=== PATIENT | male | born 1935 | race Caucasian/White ===

== ENCOUNTER 2016-07-25 10:42 | Inpatient (IN) | payer MEDICARE ==
[2016-07-25] MEDS ORDERED: Ondansetron INJ* 2 MG/ML VIAL IV ONE (14:12)
[2016-07-25] MEDS: NS 0.9% 1000 ML* 2,000 ML IV ONE ×2 (14:52→15:37)
[2016-07-25 15:03] LABS: Comments Flag Yes; Hematocrit 44 % (42-52); Hemoglobin 14.3 g/dl (14.0-18.0); Mean Corpuscular HGB Conc 33 g/dl (31-36); Mean Corpuscular Hemoglobin 30 pg (27-31); Mean Corpuscular Volume 92 fL (80-94); Mean Platelet Volume 8 um3 (7.4-10.4); Red Blood Count 4.77 10^6/ul (4.0-5.4); Red Cell Distribution Width 15 % (10.5-15); White Blood Count 5.1 10^3/ul (3.5-10.8)
[2016-07-25 15:04] LABS: Add Diff/Slide Review? Slide Review Added
[2016-07-25 15:23] LABS: Albumin 3.8 g/dL (3.2-5.2); BUN/Creatinine Ratio 12.4 (8-20); C Reactive Protein 44.83 mg/L (< 5.00); Calcium 11.3 mg/dL (8.6-10.3); EGFR African American 59.9 (>60); EGFR Non-African American 46.6 (>60); Potassium 3.8 mmol/L (3.5-5.0); Total Bilirubin 2.8 mg/dL (0.2-1.0); Total Protein 6.8 g/dL (6.4-8.9)
[2016-07-25] MEDS ORDERED: Iodixanol* (CONTRAST) 320 MG/ML 100 ML SDV IV ONE (15:59)
--- NOTE | 2016-07-25 17:32 | RAD ---
INDICATION: RIGHT lower quadrant tenderness. Bloody diarrhea. Assess for colitis. Post appendectomy. Post cholecystectomy. COMPARISON: June 10, 2016 CT. TECHNIQUE: Multidetector CT images were obtained from the lung bases to the ischial tuberosities with 100 mL Visipaque 320 IV and oral contrast. Multiplanar reformation. REPORT: Mild RIGHT greater than LEFT basilar dependent atelectasis. RIGHT coronary artery calcification. Negative for cardiomegaly or pericardial effusion. Enlarged liver measuring up to 24.5 cm cephalocaudal increased from 22.9 cm previously. Mildly nodular liver surface contour. Heterogeneous hepatic density with diffuse nodularity. Ill-defined 0.9 cm hypodense lesion at the RIGHT posterior hepatic segment reference image 32 is new compared with the prior exam. Post cholecystectomy. Negative for biliary dilatation. Atrophic pancreas without suspicious finding. Mildly enlarged 14.3 cm length spleen without gross change. Negative for CT abnormality of the upper GI or small bowel. Post appendectomy. Enteric contrast extends to the rectum. Severe diverticulosis of the colon most marked at the sigmoid segment without findings of acute diverticulitis. No focal colonic lesions conspicuous. Minimal perihepatic ascites. Negative for free air. Small fat-containing indirect LEFT inguinal hernia without inflammatory change. Normal adrenal glands. Symmetric nephrograms and pyelograms. No suspicious focal renal lesions or hydronephrosis. Despite absence of LEFT hydronephrosis a 5 mm distal LEFT ureteral stone is visualized approximate 2.7 cm from the ureteral vesicular junction with distal propagation compared with the June 10, 2016 exam. No significant periureteral inflammatory change evident. Largely decompressed urinary bladder without gross abnormality. Coarse calcifications at the mildly prominent prostate. Symmetric seminal vesicles. 1.5 cm short axis lymph node anterior to the hepatic artery is increased from 0.7 cm on the prior exam. Infrarenal anterior para-aortic lymph node measures 1.2 cm short axis increased from 0.6 cm previously. Tortuous and calcified abdominal aorta and iliac arteries without aneurysm. Negative for retroperitoneal hematoma. Polyarticular degenerative arthropathy. Negative for suspicious focal osseous lesions. IMPRESSION: 1. Increased hepatomegaly with coarse echotexture/nodularity. Consider early cirrhosis. Ill-defined 0.9 cm hypodense lesion at the RIGHT posterior hepatic segment appears new compared with the prior exam. If clinically feasible consider hepatic mass protocol MRI for further assessment. 2. No significant change in splenomegaly. 3. New abdominal adenopathy as described. 4. Despite absence of LEFT hydronephrosis a 5 mm distal LEFT ureteral stone is visualized approximate 2.7 cm from the ureteral vesicular junction with distal propagation compared with the June 10, 2016 exam. No significant periureteral inflammatory change evident. 5. Severe colonic diverticulosis most marked at the sigmoid colon without findings of acute diverticulitis. 6. Small perihepatic ascites.
[2016-07-25] MEDS ORDERED: NS 0.9% 1000 ML* 2,000 ML IV ONE (18:10)
--- NOTE | 2016-07-25 19:49 | RAD ---
Indication: Heterogeneous liver on CT the same date with suggestion of small focal lesion at the RIGHT posterior hepatic segment. Jaundice. Comparison: CT of the same date. Technique: RIGHT upper quadrant ultrasound. Report: Appropriate direction flow documented in the portal and hepatic veins. 20.9 cm cephalocaudal liver is heterogeneous in echotexture. Hypoechoic nodules throughout the liver with dominant 4.3 x 3.1 x 3.2 cm irregularly marginated nodule with suggestion of marginal vascularity at the RIGHT posterior hepatic segment possibly corresponding with the smaller region of focal hypodensity on CT. A small amount of perihepatic ascites is noted posteriorly. Negative for intra or extrahepatic biliary dilatation. While conspicuity is limited the common bile duct measures approximate 4 mm in diameter. Post cholecystectomy. The pancreas is obscured due to bowel gas. Unremarkable 9.8 x 5.1 x 4.4 cm RIGHT kidney. IMPRESSION: 1. Markedly coarsened echotexture of the liver and increased hepatic echogenicity. Hypoechoic nodules throughout the liver with dominant 4.3 x 3.1 x 3.2 cm irregularly marginated nodule with suggestion of marginal vascularity at the RIGHT posterior hepatic segment possibly corresponding with the smaller region of focal hypodensity on CT. Magnitude of increased hepatic echogenicity and diffuse coarse echotexture limits assessment. Correlate for potential acute hepatitis as well as early cirrhosis. Appropriate direction flow documented in the portal vein. If clinically feasible consider follow-up liver mass protocol MRI. 2. Post cholecystectomy. Negative for biliary dilatation.
[2016-07-25] MEDS ORDERED: Acetaminophen TAB* 325 MG PO PRN (19:52)
[2016-07-25] MEDS ORDERED: Dextrose 50% Syringe 50 ML* 25 GM/50 ML SYRINGE IV PUSH PRN (19:55)
[2016-07-25] MEDS ORDERED: NS 0.9% 1000 ML* 1,000 ML IV SCH (20:00)
--- NOTE | 2016-07-25 20:57 | RAD ---
Indication: Diarrhea and vomiting. Chronic lymphoid leukemia. Comparison: Abdomen CT of the same date and March 21, 2014 chest radiograph. January 18, 2015 CT. Technique: Upright AP 2021 hours Report: Moderate elevation of the RIGHT hemidiaphragm with associated mild RIGHT basilar atelectasis. The lungs and pleural spaces are otherwise clear. Top normal heart size. Unremarkable central pulmonary vasculature and mediastinal contours. Mildly tortuous descending thoracic aorta. Negative for free air beneath the diaphragm. IMPRESSION: Moderate elevation of the RIGHT hemidiaphragm with interval increase in associated basilar atelectasis.
[2016-07-25] MEDS ORDERED: Heparin VIAL(*) 5000 UNITS/ML VIAL (FIVE THOUSAND) SUBCUT SCH (22:00)
[2016-07-26 01:41] LABS: Urine Bilirubin Negative (Negative); Urine Glucose Negative (Negative); Urine Nitrite Negative (Negative)
--- NOTE | 2016-07-26 02:09 | HP ---
HISTORY AND PHYSICAL: DATE OF ADMISSION: 07/25/16 PRIMARY CARE PROVIDER: Cornel Solorzano MD. MY ATTENDING PHYSICIAN WHILE IN THE HOSPITAL: Tosha Loja MD*, (report being dictated by Luis Jacques NP). CHIEF COMPLAINT: 1. Weakness. 2. Diarrhea. 3. Vomiting. HISTORY OF PRESENTING ILLNESS: Mr. Tavares is an 81-year-old male patient. He has a history of CLL, diabetes, hypertension, hyperlipidemia, back pain, depression, CHRISTIANO, history of anxiety, peptic ulcer disease, kidney stones, diverticulosis with diverticulitis, and Nelson cell carcinoma. He comes into the ER today stating that over the last few days, he has started out with just generally not feeling well, very vague in terms of his symptoms, just said he felt weak, was not feeling good, did not feel like himself. He states that he noted that he was having some right lower quadrant abdominal pain that was coming and going, with no association with food. Describes it as a pressure, cramping-type discomfort. He had no recent sick contacts and he states that no one else in his family has been sick with similar symptoms as far as he knows. The pain eventually actually went away, but then in the last 24 to 48 hours, he has had diarrhea; he says that yesterday and last night, he was going almost every hour. He denied having any blood in the stool. Denies any abdominal pain currently. He says that he was starting to have some vomiting as well yesterday and he just did not feel well. He denied having any rhinorrhea or sore throat. He says he feels like he is aching all over. He denied having any chest pain or any shortness of breath. He does state that he felt chills and he was sweating when he was waiting in the emergency room despite him having a winter jacket and being, in his words, "bundled up to be outside", he still felt cold. He says that he did not have any documented fevers that he knows of, but he was concerned. He spoke to his urologist, thought maybe he had a kidney stone. They were concerned that perhaps he had diverticulitis and they referred him to the ER to be further evaluated. He denies any recent changes in medication. There has been no recent antibiotics and, to his knowledge, there has been no consumption of spoilt food. He was evaluated in the ER. There was concern because his LFTs were elevated. He appeared to be dehydrated. Heart rate was hovering right around the 90s and the hospitalist service was asked to evaluate for admission. PAST MEDICAL HISTORY: Significant for: 1. CLL. 2. Diabetes. 3. Hypertension. 4. Hyperlipidemia. 5. Back pain. 6. Depression. 7. CHRISTIANO. 8. Anxiety. 9. Peptic ulcer disease. 10. Nephrolithiasis. 11. Diverticulitis. 12. [place] cell cancer. PAST SURGICAL HISTORY: 1. He has had an appendectomy. 2. Lymph node dissection in the left upper extremity. 3. Back surgery. 4. Shoulder surgery. 5. Laparoscopic cholecystectomy. 6. Partial colectomy. HOME MEDICATIONS: According to the list that we obtained, include: 1. Percocet 1 tablet every 6 hours as needed. 2. Glipizide 5 mg daily. 3. Wellbutrin 100 mg a day. 4. Flomax 0.4 mg daily. 5. Multivitamin 1 tablet daily. 6. Lisinopril 20 mg a day. 7. Ibuprofen 400 mg every 6 hours as needed. 8. Fioricet 1 tablet every 4 hours as needed. 9. Dilaudid 2 tablets every 4 hours as needed. 10. Lexapro 20 mg p.o. daily. ALLERGIES TO MEDICATIONS: Include none, but he is allergic to GRAPEFRUIT. FAMILY HISTORY: His mother had diabetes and she from heart attack. Father from complications of anesthesia. SOCIAL HISTORY: He is a former smoker. He occasionally drinks alcohol. He lives with his . Surrogate decision maker is his daughter. REVIEW OF SYSTEMS: There is no documented fever. He does admit to having some chills in the ER waiting room. Denies any significant weight change. Denies having any double vision. There is no ear discharge. He denies having any rhinorrhea. No sore throat. No thyroid enlargement. Denies having any chest pain. There is no orthopnea. No nocturnal dyspnea. There was abdominal discomfort, but has now subsided. He did admit to some vomiting and nausea with diarrhea. He denies any dysuria. There was no frequency. He denied any seizure or any loss of consciousness. No pruritus and no skin ulcerations. Review of 14 systems completed, all others are negative. PHYSICAL EXAMINATION GENERAL: At this time, Mr. Tavares is an 81-year-old male patient. He appears to be well nourished. He does not appear to be in any acute distress. He is awake, he is alert, and he is oriented x3. VITAL SIGNS: Blood pressure 158/77, with a pulse of 95, respirations 20, O2 sat of 90%, and he had a temperature of 97.1. HEENT: Head is atraumatic and normocephalic. Eyes: EOMs are intact. Sclerae anicteric and not pale. NECK: Supple. Throat: Oral mucosa appears to be moist. No oropharyngeal erythema. LUNGS: Clear to auscultation bilaterally. No wheezes, rales, or rhonchi. HEART: Sounds S1, S2. Regular rate and rhythm. No murmurs, rubs or gallops. ABDOMEN: Soft, flat, and nontender. Bowel sounds present. EXTREMITIES: Pulses are 2+ throughout. He is able to move all 4 extremities with 5/5 strength. NEUROLOGIC: The patient is awake, alert, and oriented x3. Tongue midline. Retail Director were equal. No gross focal deficits. SKIN: Grossly intact. DIAGNOSTIC STUDIES/LAB DATA: Today revealed WBC of 5.1, RBC of 4.77, hemoglobin of 14.3, hematocrit of 44, and platelet count of 66,000. He has a history of thrombocytopenia. He has a sodium of 132, potassium of 3.8, chloride of 101, bicarb of 23, BUN of 18, creatinine of 1.45, glucose of 225, lactic of 2.7, and calcium of 11.3. Total bili 2.8, AST 140, ALT 81, and alk phos 157. CRP of 44. Lipase of 15. Urine is pending. He did have an abdominal ultrasound today, which revealed markedly coarsened echotexture of the liver and increased hepatic echogenicity, hypoechoic nodule throughout the liver, with dominant 4.3 x 3.1 x 3.2 irregular marginated nodule with suggestion of marginal vascularity of the right posterior hepatic segment, possibly corresponding with a smaller region of focal hypodensity on the CT, magnitude of increased hepatic echogenicity and diffuse coarse echotexture limits. Assessment: 1. Correlate for potential acute hepatitis as well as early cirrhosis. Appropriate direction flow documented in the portal vein. If clinically feasible, consider followup liver mass protocol MRI. 2. Post cholecystectomy, negative for biliary dilatation. He had a CT of the abdomen and pelvis today as well, which revealed increased hepatomegaly with coarse echotexture nodularity. Consider early cirrhosis. An ill- defined 0.9 cm hypodense lesion at the right posterior hepatic segment, appears new compared to prior exam. If clinically feasible, consider hepatic mass protocol MRI for further assessment. No significant changes in splenomegaly. New abdominal adenopathy as described. Despite absence of left hydronephrosis, a 5 mm distal left ureteral stone is visualized, approximately 2.7 cm from the UVJ, with distal propagation; compared with 06/18/16 exam, no significant periureteral inflammatory change evident, severe colonic diverticulosis, most marked in the sigmoid colon without findings of acute diverticulitis or perihepatic ascites. Old medical records were reviewed. ASSESSMENT AND PLAN: Mr. Tavares is an 81-year-old male patient coming into the ER today with complaints of nausea, vomiting, diarrhea, and right lower quadrant abdominal pain that has actually gone away now, but he is still complaining of having episode of vomiting and diarrhea over the last 24 hours. On evaluation, it was found that he did have this questionable liver mass of unknown etiology. He will be admitted under observatory status for: 1. Abdominal discomfort, etiology unclear, with associated nausea and vomiting. At this point, he may certainly have an underlying gastroenteritis. I think at this point, we will offer supportive care in the form of antiemetics , pain control, in addition to this IV fluids. I do not see a need for antibiotics at this point. I want to send off stool cultures and a rotavirus, and in addition to this norovirus and C. diff testing. I am also going to send the flu swab as well. In addition to this, we will send a fecal lactoferrin as well to help us differentiate any other infection. I will send off ova and parasite as well. 2. Liver mass: Again, etiology unclear. The ultrasound does point to the possibility of hepatitis. I will send off an acute hepatitis panel as hepatitis A can certainly present with diarrhea, but I do not think this is the case, the patient has not had any travel recently and there is no relatives that are sick with similar episodes. His LFTs are elevated, but again, that could be from gastroenteritis from nausea and vomiting, or a possible hepatitis. We will send off these tests. If the acute hepatitis panel is negative, we may need to consider getting GI input as well. We may need to consider, in the outpatient setting or possibly here, doing an MRI protocol of the liver mass per Radiology. 3. Elevated liver function tests, etiology is unclear, he is not having any pain currently. He has no gallbladder and there is no report of obstructed bile duct and he is not tender in the right upper quadrant. At this point, I am just going to monitor his LFTs and we will continue to follow. We may need to consider further imaging if these do continue to elevate. 4. Chronic lymphocytic leukemia, stable. We will follow. 5. Diabetes: He will be on lispro sliding scale. 6. Hypertension: In the setting of the acute illness, I am going to hold off on his lisinopril. We will add it back if need be. 7. Hyperlipidemia: We will continue current medical regimen as prescribed. 8. Back pain: Continue medication as prescribed. 9. Depression: Continue with his Wellbutrin. 10. Obstructive sleep apnea: I have ordered a CPAP. 11. Anxiety: Continue current medical regimen. 12. Nephrolithiasis: At this point, he is not complaining any left flank pain and he does not have any CVA tenderness. We will monitor him. 13. Peptic ulcer disease: Continue meds as prescribed. I would recommended holding off on anymore ibuprofen. 14. Benign prostatic hyperplasia: Continue the Flomax. 15. [place] cell cancer: Follow with his primary. 16. DVT prophylaxis: He will be placed on heparin subcu. 17. Code status: He is full code. 18. Fluid, electrolytes, and nutrition: He can have a heart-healthy diet. TIME SPENT: Time spent on the admission was 60 minutes; greater than half the time was spent [id number] with the patient obtaining my history and physical, the other half time was spent going over the plan of care with the patient and implementing plan of care. I discussed the plan of care with my attending, Dr. Loja, she is in agreement. LUIS JACQUES NP CC: Dr. Solorzano* [id number]/[facility] #: [id number] [facility]
[2016-07-26 06:44] LABS: Hematocrit 37 % (42-52); Mean Corpuscular HGB Conc 33 g/dl (31-36); Mean Corpuscular Hemoglobin 30 pg (27-31); Mean Corpuscular Volume 93 fL (80-94); Mean Platelet Volume 9 um3 (7.4-10.4); Red Blood Count 3.94 10^6/ul (4.0-5.4); Red Cell Distribution Width 15 % (10.5-15); White Blood Count 2.6 10^3/ul (3.5-10.8)
[2016-07-26 06:46] LABS: Add Diff/Slide Review? Slide Review Added; Comments Flag Yes
[2016-07-26 07:04] LABS: Albumin 2.9 g/dL (3.2-5.2); BUN/Creatinine Ratio 11.1 (8-20); Calcium 9.3 mg/dL (8.6-10.3); Direct Bilirubin 0.8 mg/dL (0.03-0.18); EGFR African American 76.8 (>60); EGFR Non-African American 59.7 (>60); Globulin 2.6 g/dL (2-4); Potassium 3.8 mmol/L (3.5-5.0); Total Bilirubin 1.8 mg/dL (0.2-1.0); Total Protein 5.5 g/dL (6.4-8.9)
[2016-07-26] MEDS: Insulin LISPRO* 1 UNITS UNIT SUBCUT SCH ×3 (08:58→17:58)
[2016-07-26] MEDS: Tamsulosin CAP* 0.4 MG PO SCH (08:59)
[2016-07-26] MEDS: buPROPion SR TAB.SR* 100 MG PO SCH (08:59)
[2016-07-26] MEDS ORDERED: Pneumococcal *Vac Polyvalent 0.5 ML VIAL IM ONE (09:00)
--- NOTE | 2016-07-26 11:14 | PN ---
Subjective Date of Service: 07/26/16 Interval History: Patient seen and examined at bedside. He is in good spirits and in the room with his and daughter. He denies fever/chills, CP, sob. Reports decreased abd pain but still feels weak and has persistent diarrhea. 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 Family History: Unchanged from Admission Social History: Unchanged from Admission Past Medical History: Unchanged from Admission Objective Active Medications: Acetaminophen (Tylenol Tab*) 650 mg PO Q4H PRN PRN Reason: FEVER/PAIN Acetaminophen/Hydrocodone Bitart ([place] 5-325 Tab*) 1 tab PO Q4H PRN PRN Reason: PAIN Bupropion HCl (Wellbutrin Sr Tab*) 100 mg PO QAM [facility] Last Admin: 07/26/16 08:59 Dose: 100 mg Dextrose (D50w Syringe 50 Ml*) 12.5 gm IV PUSH .FOR FS < 60 - SS PRN PRN Reason: FS < 60 Sodium Chloride (Ns 0.9% 1000 Ml*) 1,000 mls @ 100 mls/hr IV PER RATE [facility] Last Admin: 07/25/16 22:17 Dose: 100 mls/hr Insulin Human Lispro (Humalog*) 0 units SUBCUT AC [facility] PRN Reason: Protocol Last Admin: 07/26/16 08:58 Dose: 2 units Ondansetron HCl (Zofran Inj*) 4 mg IV Q6H PRN PRN Reason: NAUSEA Tamsulosin HCl (Flomax Cap*) 0.4 mg PO DAILY [facility] Last Admin: 07/26/16 08:59 Dose: 0.4 mg Vital Signs 07/25/16 07/25/16 07/25/16 21:00 21:15 21:22 Temperature 97.5 F 97.5 F Pulse Rate 70 95 95 Respiratory 19 17 17 Rate Blood Pressure 134/68 160/83 160/83 (mmHg) O2 Sat by Pulse 93 99 99 Oximetry 07/26/16 07/26/16 07/26/16 00:00 00:57 03:09 Temperature 98.0 F Pulse Rate 94 Respiratory 16 17 Rate Blood Pressure 156/87 (mmHg) O2 Sat by Pulse 94 94 Oximetry 07/26/16 05:08 Temperature 98.5 F Pulse Rate 98 Respiratory 16 Rate Blood Pressure 169/92 (mmHg) O2 Sat by Pulse 96 Oximetry Oxygen Devices in Use Now: None Appearance: Older male patient, lying in bed, in NAD Eyes: PERRLA Ears/Nose/Mouth/Throat: Mucous Membranes Moist Neck: NL Appearance and Movements; NL JVP Respiratory: Symmetrical Chest Expansion and Respiratory Effort, Clear to Auscultation Cardiovascular: NL Sounds; No Murmurs; No JVD, RRR Abdominal: NL Sounds; No Tenderness; No Distention - mild tenderness to RLQ Extremities: No Edema Skin: No Rash or Ulcers Neurological: Alert and Oriented x 3 Lines/Tubes/Other Access: Clean, Dry and Intact Peripheral IV Nutrition: Taking PO's Result Diagrams: 07/26/16 06:16 07/26/16 06:16 Microbiology and Other Data: Microbiology 07/26/16 01:15 Stool Gross Appearance - Final Stool C. difficile DNA Amplification - Final 027 Presumptive NEGATIVE Toxigenic C.diff NEGATIVE Stool Lactoferrin - Final - Final 07/26/16 01:15 Stool Gross Appearance - Final Stool Rotavirus Antigen - Final Negative Rotavirus 07/25/16 22:55 Influenza Types A,B Antigen (LAKESHIA) - Final Nasal Specimen received for Influenza A/B Molecular testing Assess/Plan/Problems-Billing Assessment: Mr. Tavares is an 81 yo male with a PMH of CLL, DM, HTN, HLD, back pain, depression, PUD, nephrolithiasis, diverticulitis, and [place] Cell cancer who presented to the ED on 07/25/16 with weakness, diarrhea, and vomiting. - Patient Problems (1) Vomiting and diarrhea Code(s): R11.10 - VOMITING, UNSPECIFIED; R19.7 - DIARRHEA, UNSPECIFIED Comment : Suspect gastroenteritis or perhaps a food borne illness, as patient states he does eat out frequently. Reports frequent diarrhea for approximately 2 days, now improving in terms of frequency; vomiting started yesterday. Patient has a history of partial colectomy and has chronic issues with frequent, sudden BM that alternate between formed and loose stools. C. difficile, rotavirus, and lactoferrin are negative. Norovirus, stool culture, and ova and parasites are still pending. Continue IVF and supportive care. (2) Liver mass Code(s): R16.0 - HEPATOMEGALY, NOT ELSEWHERE CLASSIFIED Comment: Hepatitis panel negative. Appreciate GI consult to help guide evaluation. LFTs improved today. (3) Elevated LFTs Code(s): R94.5 - ABNORMAL RESULTS OF LIVER FUNCTION STUDIES Comment: Improving today, may be secondary to nausea/vomiting. Continue to trend. (4) Type 2 diabetes mellitus Comment: HgbA1c 9.1. Continue FSBG AC with Lispro SSI. Diabetes education consult placed. Patient takes Glipizide at home. (5) HTN (hypertension) Code(s): I10 - ESSENTIAL (PRIMARY) HYPERTENSION Comment: Hypertensive, restart lisinopril. (6) Back pain Code(s): M54.9 - DORSALGIA, UNSPECIFIED Comment: Stable, continue PRN [place]. (7) Depression Code(s): F32.9 - MAJOR DEPRESSIVE DISORDER, SINGLE EPISODE, UNSPECIFIED Comment: Stable. Continue Wellbutrin. (8) CHRISTIANO (obstructive sleep apnea) Code(s): G47.33 - OBSTRUCTIVE SLEEP APNEA (ADULT) (PEDIATRIC) Comment: Offer hospital CPAP for nighttime use. (9) Anxiety Code(s): F41.9 - ANXIETY DISORDER, UNSPECIFIED Comment: Continue to offer supportive care. (10) Nephrolithiasis Code(s): N20.0 - CALCULUS OF KIDNEY Comment: 5mm distal left ureteral stone, approx. 2.7 cm from UVJ - this is a known finding and patient states it has been monitored by his urologist. He does not have any pain or hydronephrosis from the stone. Continue to monitor. (11) BPH (benign prostatic hyperplasia) Code(s): N40.0 - BENIGN PROSTATIC HYPERPLASIA WITHOUT LOWER URINRY TRACT SYMP Comment: Continue Flomax. (12) DVT prophylaxis Comment: SCDs Status and Disposition: OBV admit.
[2016-07-26] MEDS: Lisinopril TAB* 10 MG PO SCH (16:55)
[2016-07-26] MEDS ORDERED: Aspirin Low Dose CHEW TAB* 81 MG PO ONE (21:55)
[2016-07-26] MEDS ORDERED: Aspirin Low Dose CHEW TAB* 81 MG ONE (22:08)
[2016-07-26] MEDS: Nitroglycerin TAB 0.4 MG* 0.4 MG TAB SL PRN (22:16)
--- NOTE | 2016-07-26 22:34 | RAD ---
Indication: Sudden onset RIGHT side chest pain. Slight shortness of breath. Gastroenteritis. Comparison: 2021 July 25, 2016 Technique: Upright AP 2200 hours Report: Rightward rotation noted. Mild to moderate elevation of the RIGHT hemidiaphragm with associated mild RIGHT basilar atelectasis. Clear pleural spaces. Negative for pneumothorax. Negative for cardiomegaly. Unremarkable central pulmonary LEFT axillary surgical clips. Vasculature. Mildly tortuous descending thoracic aorta. Negative for free air beneath the diaphragm. IMPRESSION: Mild RIGHT basilar atelectasis secondary to diaphragmatic elevation. Negative for pneumothorax.
[2016-07-27 06:41] LABS: Hematocrit 37 % (42-52); Hemoglobin 12.4 g/dl (14.0-18.0); Mean Corpuscular HGB Conc 33 g/dl (31-36); Mean Corpuscular Hemoglobin 31 pg (27-31); Mean Corpuscular Volume 93 fL (80-94); Mean Platelet Volume 8 um3 (7.4-10.4); Red Blood Count 4.01 10^6/ul (4.0-5.4); Red Cell Distribution Width 15 % (10.5-15)
[2016-07-27 06:46] LABS: Comments Flag Yes; White Blood Count 2.5 10^3/ul (3.5-10.8)
[2016-07-27 06:55] LABS: Albumin 3.1 g/dL (3.2-5.2); BUN/Creatinine Ratio 11.7 (8-20); Calcium 9.7 mg/dL (8.6-10.3); Direct Bilirubin 0.8 mg/dL (0.03-0.18); EGFR African American 81.6 (>60); EGFR Non-African American 63.4 (>60); Globulin 2.7 g/dL (2-4); Indirect Bilirubin 1.3 mg/dL (0.3-1.0); Potassium 3.7 mmol/L (3.5-5.0); Total Bilirubin 2.1 mg/dL (0.2-1.0); Total Protein 5.8 g/dL (6.4-8.9)
[2016-07-27] MEDS: Insulin LISPRO* 1 UNITS UNIT SUBCUT SCH ×4 (08:00→17:21)
[2016-07-27] MEDS: Tamsulosin CAP* 0.4 MG PO SCH (08:38)
[2016-07-27] MEDS: Lisinopril TAB* 10 MG PO SCH (08:38)
[2016-07-27] MEDS: buPROPion SR TAB.SR* 100 MG PO SCH (08:38)
--- NOTE | 2016-07-27 08:43 | CONS ---
CONSULTATION REPORT: DATE OF CONSULT: 07/26/16 REQUESTING PHYSICIAN: Dr. Loja. INDICATION: Liver lesion. HISTORY OF PRESENT ILLNESS: Mr. Tavares is an 81-year-old gentleman with a history of CLL, diabetes, depression, obstructive sleep apnea, hypertension, hyperlipidemia, diverticulitis, and peptic ulcer disease, who was admitted a few days ago with weakness and diarrhea. It was felt to be secondary to gastroenteritis. During the workup, he did receive a CT abdomen and pelvis, which showed a 9-mm new lesion in his liver. He also has mild abdominal adenopathy and increased LFTs. The patient states that he does drink occasional alcohol. He has never had liver disease in the past. He is feeling better from a gastroenteritis standpoint. His stools are starting to firm up, less frequent, and his pain is improving. There is also a question of cirrhosis on the CT. PAST MEDICAL HISTORY: Please see the HPI. PAST SURGICAL HISTORY: 1. Appendectomy. 2. Lymph node dissection. 3. Back surgery. 4. Shoulder surgery. 5. Partial colectomy. 6. Lap dimitry. HOME MEDICATIONS: Include: 1. Lexapro. 2. Dilaudid. 3. Fioricet. 4. Ibuprofen. 5. Lisinopril. 6. Multivitamin. 7. Flomax. 8. Wellbutrin. 9. Glipizide and Percocet. ALLERGIES: GRAPE FRUIT. FAMILY HISTORY: Coronary artery disease. SOCIAL HISTORY: He quit smoking. Again, rarely drinks alcohol. 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 REVIEW OF SYSTEMS: Twelve systems were reviewed and other than that mentioned in the HPI, were unremarkable. PHYSICAL EXAM: Vital Signs: Temperature is 98.5, blood pressure 169/92, pulse 98. General: A well-appearing male in no apparent distress, lying flat in bed. Alert, oriented, pleasant, and fluent. HEENT: Mucous membranes are moist without lesions, ulcers or exudate. Head is normocephalic, atraumatic. Neck: Supple. Trachea is midline. Heart: Regular rate and rhythm. Lungs: Clear to auscultation. Abdomen: Obese. Positive bowel sounds. Soft. Liver edge is palpable. No rebound, no guarding. No masses are felt. Skin: Warm and dry. DIAGNOSTIC STUDIES/LAB DATA: Labs of note, BUN is 13, creatinine is 1.17, T- bili is 1.8, alk phos is 122, AST is 120, ALT is 69, albumin is 2.9. White count is 2.6, hemoglobin is 12, platelets of 39. CT shows a 9-mm liver mass, questionable cirrhosis and abdominal adenopathy. ASSESSMENT AND PLAN: An 81-year-old male with history of likely gastroenteritis and a new liver lesion. We need to evaluate the liver lesion a little bit further. I have recommended an MRI with repeat LFTs. I would also like to check an alpha- fetoprotein to make sure this is not hepatocellular carcinoma given the possible history of cirrhosis. We will continue to follow along. CC: Dr. Solorzano* [id number]/[facility] #: [id number] [facility] HOSPITALBrian
[2016-07-27] MEDS ORDERED: Iodixanol 320 (CONTRAST) 100 ML SDV IV ONE (11:11)
--- NOTE | 2016-07-27 11:55 | ED ---
Kim Marie Adam, scribed for José Antonio Hull MD on 07/25/16 at 1436 . GI/ HPI - HPI Summary HPI Summary: An 81 y/o male presents to the ED c/o diarrhea and vomiting for 3 weeks aggravated by food. He also reports chills and blood in the diarrhea, and denies CP, SOB, or urinary symptoms. Patient has a significant medical history including diverticulitis, HTN, hyperlipidemia, CLL Type 2 diabetes, panic attacks, and GERD. Surgical hx includes appendectomy, negative cardiac cath in 2009, and polyectomy. - History of Current Complaint Chief Complaint: EDNauseaVomitDiarrh Time Seen by Provider: 07/25/16 14:11 Stated Complaint: DIARRHEA/VOMITING Hx Obtained From: Patient Onset/Duration: Started Weeks Ago - 3 weeks Timing: Constant Severity: Moderate Current Severity: Moderate Pain Intensity: 0 Location of Pain: None Associated Signs and Symptoms: Positive: Nausea, Vomiting, Blood w/Stool, Diarrhea, Chills, Other: - Negative: CP, SOB, Urinary symptoms Aggravating Factor(s): Food Alleviating Factor(s): Bowel Movements - Diarrhea - Allergy/Home Medications Allergies/Adverse Reactions: Allergies Allergy/AdvReac Type Severity Reaction Status Date / Time GRAPEFRUIT Allergy Rash Uncoded 06/11/16 10:11 Home Medications: Home Medications Escitalopram (NF) [Lexapro (NF)] 20 mg PO QAM 07/25/16 [History Confirmed ] Lisinopril [Lisinopril 40 MG-] 20 mg PO DAILY 07/25/16 [History Confirmed ] Tamsulosin CAP* [Flomax CAP*] 0.4 mg PO DAILY 07/25/16 [History Confirmed ] buPROPion SR TAB* [Wellbutrin SR TAB*] 100 mg PO QAM 07/25/16 [History Confirmed 07/25/16] glipiZIDE TAB.XL* [Glucotrol XL*] 5 mg PO DAILY 07/25/16 [History Confirmed 11/05] PMH/Surg Hx/FS Hx/Imm Hx Endocrine/Hematology History: Reports: Hx Anemia Denies: Hx Diabetes Cardiovascular History: Reports: Hx Hypercholesterolemia, Hx Hypertension Denies: Hx Congestive Heart Failure, Other Cardiovascular Problems/Disorders Respiratory History: Reports: Hx Sleep Apnea Denies: Other Respiratory Problems/Disorders GI History: Reports: Hx Gastroesophageal Reflux Disease, Other GI Disorders - HX diverticulitis History: Reports: Other Problems/Disorders - enlarged bladder Denies: Hx Dialysis, Hx Renal Disease Musculoskeletal History: Reports: Hx Arthritis - RIGHT SHOULDER, LEFT THUMB, Other Musculoskeletal History - arthritis to shoulders and rotator cuff surgery Sensory History: Reports: Hx Contacts or Glasses - GLASSES Denies: Hx Hearing Aid Opthamlomology History: Reports: Hx Contacts or Glasses - GLASSES Neurological History: Reports: Other Neuro Impairments/Disorders - poss radiation neuropathy/tingling Psychiatric History: Reports: Hx Anxiety, Hx Depression - Cancer History Cancer Type, Location and Year: CLL AND PEDRO [place] Hx Chemotherapy: Yes - 2012 - Surgical History Surgery Procedure, Year, and Place: 1952 APPENDECTOMY. 1997 & [place] [facility] [place],. 1992 & 2003 [place] [facility] [place] surgery, hemmroidectomy 03/04. ca removed left elbow with lymph node removal 2012. CHOLEYCYSTECTOMY 1999. rodriguez cell ca removed L elbow 2012. 2006 LAPAROSCOPIC [place]STECTOMY, [facility] [place] 2009 HE[place]TH CATHER[place] [facility] [place] [facility] [place]x Anesthesia Reactions: No - Immunization History Date of Tetanus Vaccine: unknown Date of Influenza Vaccine: unk Infectious Disease History: No Infectious Disease History: Denies: Traveled Outside the [place] in Last 30 Days - Family History Known Family History: Negative: Diabetes - Social History Lives: With Family - Alcohol Use: Rare Alcohol Amount: 1/WEEK Substance Use Type: Reports: None Smoking Status (MU): Former Smoker Type: Cigarettes Have You Smoked in the Last Year: No Review of Systems Positive: Chills. Negative: Fever Eyes: Negative Negative: Erythema ENT: Negative Negative: Sore Throat Cardiovascular: Negative Negative: Chest Pain Respiratory: Negative Negative: Shortness Of Breath, Cough Positive: Vomiting, Diarrhea, Nausea, Other - Blood in diarrhea. Negative: Abdominal Pain Genitourinary: Negative Positive: no symptoms reported. Negative: burning, dysuria, hematuria Musculoskeletal: Negative Negative: Myalgia Skin: Negative Negative: Rash Neurological: Negative, Other - Negative: dizziness Psychological: Normal All Other Systems Reviewed And Are Negative: Yes Physical Exam - Summary Physical Exam Summary: Constitutional: Well-developed, Well-nourished, Alert. (-) Distressed Skin: Warm, Dry HENT: Normocephalic; Atraumatic Eyes: Conjunctiva normal Neck: Musculoskeletal ROM normal neck. (-) JVD, (-) Stridor, (-) Tracheal deviation Cardio: Rhythm regular, rate normal, Heart sounds normal; Intact distal pulses; The pedal pulses are 2+ and symmetric. Radial pulses are 2+ and symmetric. (-) Murmur Pulmonary/Chest wall: Effort normal. (-) Respiratory distress, (-) Wheezes, (-) Rales Abd: Soft, RLQ tenderness, (-) Distension, (-) Guarding, (-) Rebound Musculoskeletal: (-) Edema Lymph: (-) Cervical adenopathy Neuro: Alert, Oriented x3 Psych: Mood and affect Normal Vital Signs On Initial Exam: Initial Vitals Temp Pulse Resp BP Pulse Ox 97.2 F 118 20 128/78 94 07/25/16 10:59 07/25/16 10:59 07/25/16 10:59 07/25/16 10:59 07/25/16 10:59 Diagnostics - Vital Signs Vital Signs Temp Pulse Resp BP Pulse Ox 07/25/16 14:28 79 18 105/61 93 07/25/16 14:00 100/71 07/25/16 13:09 97.1 F 113 16 115/59 94 07/25/16 10:59 97.2 F 118 20 128/78 94 - Laboratory Result Diagrams: 07/25/16 14:50 07/25/16 14:50 Lab Statement: Any lab studies that have been ordered have been reviewed, and results considered in the medical decision making process. - CT Abd/Pelvis CT Interpretation: Positive (See Comments) - 1. Increased hepatomegaly with coarse echotexture/nodularity. Consider early cirrhosis. Ill-defined 0.9 cm hypodense lesion at the RIGHT posterior hepatic segment appears new compared with the prior exam. If clinically feasible consider hepatic mass protocol MRI for further assessment. 2. No significant change in splenomegaly. 3. New abdominal adenopathy as described. 4. Despite absence of LEFT hydronephrosis a 5 mm distal LEFT ureteral stone is visualized approximate 2.7 cm from the ureteral vesicular junction with distal propagation compared with the June 10, 2016 exam. No significant periureteral inflammatory change evident. 5. Severe colonic diverticulosis most marked at the sigmoid colon without findings of acute diverticulitis 6. Small perihepatic ascites CT Interpretation Completed By: Radiologist Re-Evaluation - Re-Evaluation First Eval Re-Evaluation Time: 18:07 Change: Unchanged Comment: Discussed labs and imaging with patient. Still tachycardic after 2 liters of fluid. GIGU Course/Dx - Diagnoses Provider Diagnoses: Ureteral stone, Dehydration, Gastritis, Hepatomegaly, Abdominal lymphadenopathy , Jaundice - Physician Notifications Discussed Care Of Patient With: Dr. Schultz (Urology, 15:30) - Explained that patient has a kidney stone in his left ureter. Dr. Hester (Hospitalist, 18:10 ) - Recommends calling oncology. Dr. Tavares (Oncology (18:45) - Not actively recieving chemotherapy. Requesting hospitalist to admit patient. Dr. Hester ( 19:00) - Agrees to admit patient. Discharge - Discharge Plan Condition: Stable Disposition: ADMITTED TO [facility] Referrals: Cornel Solorzano MD [Primary Care Provider] - The documentation as recorded by the Kim salazar Adam accurately reflects the service I personally performed and the decisions made by me, José Antonio Hull MD.
[2016-07-27] MEDS ORDERED: Iodixanol 320 (CONTRAST) 100 ML SDV IV SCH (12:00)
--- NOTE | 2016-07-27 12:49 | RAD ---
Indication: Chest pain. CTA of the chest was performed after IV contrast demonstration. Coronal and sagittal reconstructed images were obtained. Administered 82.9 ml of VISIPAQUE 320 mgi/ml was given according to hospital protocol and coronal and sagittal reconstructed images were obtained. Pulmonary arterial tree is well opacified. There are no filling defects present to suggest pulmonary embolus. The right pulmonary artery demonstrates no evidence of filling defects. The aorta demonstrates no evidence of aortic dissection or aneurysmal dilatation although atherosclerosis of the aorta is noted. Origins of the great vessels are unremarkable. The lung castro demonstrate emphysematous changes and scarring. There may be some poor inspiration with crowding of the vascular markings in the lung bases. No definite alveolar consolidation is noted. No focal nodules are identified. Degenerative changes of the glenohumeral joint are noted bilaterally. The axilla demonstrates no evidence of abnormal masses. Visualized bony structures demonstrates chronic degenerative changes of the thoracic spine. The visualized abdominal organs demonstrate previously described hypodensity in the right lobe of liver to be unchanged from prior exam. There are enlarged portacaval lymph nodes measuring up to 15 x 28 mm, enlarged celiac axis lymph nodes measuring up to 32 x 26 mm as well as an enlarged cici hepatis lymph node measuring 29 x 24 mm. Although these may represent enlargement from cirrhosis of the liver neoplastic process should BE considered. IMPRESSION: NO EVIDENCE OF PULMONARY EMBOLUS IS NOTED. CROWDING OF THE VASCULAR MARKINGS ESPECIALLY IN THE LUNG BASES. DEGENERATIVE CHANGES OF GLENOHUMERAL JOINT BILATERALLY. LIKELY CIRRHOSIS OF LIVER WITH LOW DENSITY LESION IN THE INFERIOR RIGHT LOBE OF LIVER. ENLARGED CELIAC AXIS, PORTAL CAVAL LYMPH NODES ARE NOTED. UNDERLYING MALIGNANCY SHOULD BE CONSIDERED.
[2016-07-27] MEDS ORDERED: Ketorolac INJ* 30 MG/ML 1 ML VIAL IV PUSH ONE (14:59)
[2016-07-27] MEDS ORDERED: Al Hydrox/Mg Hydrox/Simet LIQ* 30 ML UDC PO ONE (15:20)
[2016-07-27] MEDS ORDERED: Acetaminophen TAB* 325 MG PO ONE (15:22)
[2016-07-27] MEDS ORDERED: traMADol TAB* 50 MG PO PRN (16:28)
[2016-07-27] MEDS ORDERED: Acetaminophen TAB* 325 MG PO PRN (16:29)
--- NOTE | 2016-07-27 17:43 | PN ---
Subjective Date of Service: 07/27/16 Interval History: Patient seen and examined at bedside. He reports a right sided chest pain that is more tender when palpated and "twinges" when I turn from side to side. Denies any radiation of pain. Reports improvement in abd pain and diarrhea. Denies SOB, fever/chills. Telemetry: SR with PACs 100 Family History: Unchanged from Admission Social History: Unchanged from Admission Past Medical History: Unchanged from Admission Objective Active Medications: Acetaminophen (Tylenol Tab*) 650 mg PO Q6H PRN PRN Reason: FEVER/PAIN Acetaminophen/Hydrocodone Bitart ([place] 5-325 Tab*) 1 tab PO Q4H PRN PRN Reason: PAIN Bupropion HCl (Wellbutrin Sr Tab*) 100 mg PO QAM [facility] Last Admin: 07/27/16 08:38 Dose: 100 mg Dextrose (D50w Syringe 50 Ml*) 12.5 gm IV PUSH .FOR FS < 60 - SS PRN PRN Reason: FS < 60 Lactated Ringer's (Lactated Ringers 1000 Ml Bag*) 1,000 mls @ 100 mls/hr IV ONCE ONE Stop: 07/28/16 01:59 Last Admin: 07/27/16 15:45 Dose: 100 mls/hr Insulin Human Lispro (Humalog*) 0 units SUBCUT AC [facility] PRN Reason: Protocol Last Admin: 07/27/16 17:21 Dose: 9 units Iodixanol (Visipaque 320 (Contrast)) 83 ml IV ONCE [facility] Stop: 07/29/16 23:59 Lisinopril (Prinivil Tab*) 20 mg PO DAILY [facility] Last Admin: 07/27/16 08:38 Dose: 20 mg Nitroglycerin (Nitroglycerin Tab 0.4 Mg*) 0.4 mg SL Q5M PRN PRN Reason: ANGINA Last Admin: 07/26/16 22:16 Dose: 0.4 mg Ondansetron HCl (Zofran Inj*) 4 mg IV Q6H PRN PRN Reason: NAUSEA Tamsulosin HCl (Flomax Cap*) 0.4 mg PO DAILY [facility] Last Admin: 07/27/16 08:38 Dose: 0.4 mg Tramadol HCl (Ultram*) 50 mg PO Q6H PRN PRN Reason: PAIN Vital Signs 07/26/16 07/26/1617 19:34 20:00 22:01 Temperature 98.6 F 98.5 F Pulse Rate 81 79 Respiratory 16 18 20 Rate Blood Pressure 123/64 133/68 (mmHg) O2 Sat by Pulse 91 93 Oximetry 07/26/16 07/26/16 07/26/16 22:55 23:00 23:59 Temperature 98.5 F 97.2 F Pulse Rate 103 105 Respiratory 16 16 20 Rate Blood Pressure 125/64 127/77 (mmHg) O2 Sat by Pulse 92 92 Oximetry 07/27/16 07/27/16 07/27/16 02:59 07:21 07:52 Temperature 98.3 F 99.1 F Pulse Rate 73 72 Respiratory 16 18 16 Rate Blood Pressure 132/65 124/60 (mmHg) O2 Sat by Pulse 94 94 Oximetry 07/27/16 07/27/16 07/27/16 11:53 15:14 16:03 Temperature 99.5 F 99.1 F Pulse Rate 102 106 Respiratory 16 14 Rate Blood Pressure 140/77 115/65 (mmHg) O2 Sat by Pulse 90 92 92 Oximetry Oxygen Devices in Use Now: None Appearance: Older male patient, lying in bed, in NAD Eyes: PERRLA Ears/Nose/Mouth/Throat: Mucous Membranes Moist Neck: NL Appearance and Movements; NL JVP Respiratory: Symmetrical Chest Expansion and Respiratory Effort, Clear to Auscultation Cardiovascular: RRR Abdominal: NL Sounds; No Tenderness; No Distention Extremities: No Clubbing, Cyanosis Neurological: Alert and Oriented x 3 Lines/Tubes/Other Access: Clean, Dry and Intact Peripheral IV Nutrition: Taking PO's Result Diagrams: 07/27/16 06:07 07/27/16 06:07 Microbiology and Other Data: Microbiology 07/26/16 01:15 Stool Gross Appearance - Final Stool C. difficile DNA Amplification - Final 027 Presumptive NEGATIVE Toxigenic C.diff NEGATIVE Stool Lactoferrin - Final - Final 07/26/16 01:15 Stool Gross Appearance - Final Stool Rotavirus Antigen - Final Negative Rotavirus 07/25/16 22:55 Influenza Types A,B Antigen (LAKESHIA) - Final Nasal Specimen received for Influenza A/B Molecular testing Assess/Plan/Problems-Billing Assessment: Mr. Tavares is an 81 yo male with a PMH of CLL, DM, HTN, HLD, back pain, depression, PUD, nephrolithiasis, diverticulitis, and Nelson Cell cancer who presented to the ED on 07/25/16 with weakness, diarrhea, and vomiting. - Patient Problems (1) Chest pain Code(s): R07.9 - CHEST PAIN, UNSPECIFIED Comment: Chest pain overnight; EKG negative for ST changes or T wave inversions. Troponins flat. Suspect slight bump in troponin secondary to demand ischemia from gastrointestinal illness. Unable to schedule stress today; patient also with elevated LFTs. Chest pain does not appear to be cardiac, as it is right sided and is slightly reproducible. Will order echo, continue telemetry monitoring. Negative D-dimer, but CTA negative for pulmonary embolism. Will try one dose Tylenol and Maalox to alleviate pain. Avoid NSAIDs as patient has thrombocytopenia. (2) Thrombocytopenia Code(s): D69.6 - THROMBOCYTOPENIA, UNSPECIFIED Comment: With drop in WBC, unclear etiology, ?acute illness. Patient with a history of CLL. Appreciate hematology consult, which is pending. (3) Vomiting and diarrhea Code(s): R11.10 - VOMITING, UNSPECIFIED; R19.7 - DIARRHEA, UNSPECIFIED Comment : Suspect gastroenteritis or perhaps a food borne illness. Diarrhea slowing in frequency, and patient tolerating PO intake. Patient has a history of partial colectomy and has chronic issues with frequent, sudden BM that alternate between formed and loose stools. C. difficile, rotavirus, and lactoferrin are negative. Norovirus, stool culture, and ova and parasites are still pending but have been negative thus far. Continue IVF and supportive care. (4) Elevated LFTs Code(s): R94.5 - ABNORMAL RESULTS OF LIVER FUNCTION STUDIES Comment: Still elevated, ? secondary to nausea/vomiting vs liver mass. Continue to trend. Limit acetaminophen to <3 gm daily. (5) Liver mass Code(s): R16.0 - HEPATOMEGALY, NOT ELSEWHERE CLASSIFIED Comment: Appreciate GI consult. Hepatitis panel negative. Unable to obtain MRI today due to need for CTA. Radiologist felt that MRI without contrast would not be definitively diagnostic and recommended patient wait until he can do the MRI with contrast. I did discuss this with Dr. Cazares. Dr. Cazares indicated that this workup is often done as an outpatient so if the patient is discharged before MRI can be completed, patient could follow up with GI and have MRI done as an outpatient. (6) Type 2 diabetes mellitus Comment: HgbA1c 9.1. BG elevated. Start Lantus. Continue FSBG AC with Lispro SSI. Diabetes education consult placed. Patient takes Glipizide at home. (7) HTN (hypertension) Code(s): I10 - ESSENTIAL (PRIMARY) HYPERTENSION Comment: Controlled. Continue lisinopril. (8) Back pain Code(s): M54.9 - DORSALGIA, UNSPECIFIED Comment: Stable, continue PRN [place]. (9) Depression Code(s): F32.9 - MAJOR DEPRESSIVE DISORDER, SINGLE EPISODE, UNSPECIFIED Comment: Stable. Continue Wellbutrin. (10) CHRISTIANO (obstructive sleep apnea) Code(s): G47.33 - OBSTRUCTIVE SLEEP APNEA (ADULT) (PEDIATRIC) Comment: Offer hospital CPAP for nighttime use. (11) Anxiety Code(s): F41.9 - ANXIETY DISORDER, UNSPECIFIED Comment: Continue to offer supportive care. (12) Nephrolithiasis Code(s): N20.0 - CALCULUS OF KIDNEY Comment: 5mm distal left ureteral stone, approx. 2.7 cm from UVJ - this is a known finding and patient states it has been monitored by his urologist. He does not have any pain or hydronephrosis from the stone. Continue to monitor. (13) BPH (benign prostatic hyperplasia) Code(s): N40.0 - BENIGN PROSTATIC HYPERPLASIA WITHOUT LOWER URINRY TRACT SYMP Comment: Continue Flomax. (14) DVT prophylaxis Comment: SCDs Status and Disposition: Inpatient admission, anticipate LOS >2 days.
[2016-07-27] MEDS ORDERED: Insulin GLARGINE(*) 1 UNITS UNIT SUBCUT SCH (18:00)
--- NOTE | 2016-07-27 18:31 | PN ---
Progress Note - Progress Note SOAP: Subjective: []Feeling a little better. Four days of symptoms, diarrhea and chills followed by chest pain. Diarrhea is better. Still has chest pain with movement. Still with chills, no fevers. Acetaminophen (Tylenol Tab*) 650 mg PO Q6H PRN PRN Reason: FEVER/PAIN Acetaminophen/Hydrocodone Bitart ([place] 5-325 Tab*) 1 tab PO Q4H PRN PRN Reason: PAIN Bupropion HCl (Wellbutrin Sr Tab*) 100 mg PO QAM [facility] Last Admin: 07/27/16 08:38 Dose: 100 mg Dextrose (D50w Syringe 50 Ml*) 12.5 gm IV PUSH .FOR FS < 60 - SS PRN PRN Reason: FS < 60 Lactated Ringer's (Lactated Ringers 1000 Ml Bag*) 1,000 mls @ 100 mls/hr IV ONCE ONE Stop: 07/28/16 01:59 Last Admin: 07/27/16 15:45 Dose: 100 mls/hr Insulin Glargine (Lantus(*)) 10 units SUBCUT Q24H [facility] Insulin Human Lispro (Humalog*) 0 units SUBCUT AC [facility] PRN Reason: Protocol Last Admin: 07/27/16 17:21 Dose: 9 units Iodixanol (Visipaque 320 (Contrast)) 83 ml IV ONCE [facility] Stop: 07/29/16 23:59 Lisinopril (Prinivil Tab*) 20 mg PO DAILY [facility] Last Admin: 07/27/16 08:38 Dose: 20 mg Nitroglycerin (Nitroglycerin Tab 0.4 Mg*) 0.4 mg SL Q5M PRN PRN Reason: ANGINA Last Admin: 07/26/16 22:16 Dose: 0.4 mg Ondansetron HCl (Zofran Inj*) 4 mg IV Q6H PRN PRN Reason: NAUSEA Tamsulosin HCl (Flomax Cap*) 0.4 mg PO DAILY [facility] Last Admin: 07/27/16 08:38 Dose: 0.4 mg Tramadol HCl (Ultram*) 50 mg PO Q6H PRN PRN Reason: PAIN Onologic History: 1. CLL. Fatigue and progressive abdominal LAD. Treated BR x 3 ending 11/2013 with observation since that time. 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 No jaundice CTA RRR S1S2 Liver edge is palpable, non tender, no spleen tip on my exam. Exam in past wit LLQ tenderness but no liver edge. Ext tr edema, warm Assessment: []81 year old with history of Merckle cell cancer, localized and CLL. Now with increased LFTs, cytopenias, low grade fever. Ddx: viral syndrome is most likely with cytopenias and LFT changes secondary. The CT appears to show chronic liver inflammation, possible underlying dysfunction, fatty liver. Malignant differential for a liver lesion is metastatic Merckle cell cancer over primary HCC. Plan: []1. Agree with MRI if liver 2. Leukopenia and thrombocytopenia could be from acute illness or represent progression of CLL. Will follow and if remain low will need therapy for CLL. 3. Will follow up on viral studies, follow LFTs. 4. Telemetry and LISA for chest pain.
[2016-07-28] MEDS: Ondansetron INJ* 2 MG/ML VIAL IV PRN (01:33)
[2016-07-28 05:33] LABS: Hematocrit 37 % (42-52); Mean Corpuscular HGB Conc 33 g/dl (31-36); Mean Corpuscular Hemoglobin 31 pg (27-31); Mean Corpuscular Volume 93 fL (80-94); Mean Platelet Volume 8 um3 (7.4-10.4); Red Blood Count 3.94 10^6/ul (4.0-5.4); Red Cell Distribution Width 15 % (10.5-15)
[2016-07-28 05:36] LABS: Comments Flag Yes; White Blood Count 1.9 10^3/ul (3.5-10.8)
[2016-07-28 05:48] LABS: Albumin 3.1 g/dL (3.2-5.2); BUN/Creatinine Ratio 12.9 (8-20); Calcium 9.8 mg/dL (8.6-10.3); EGFR Non-African American 77.8 (>60); Globulin 2.4 g/dL (2-4); Potassium 3.6 mmol/L (3.5-5.0); Total Bilirubin 2.5 mg/dL (0.2-1.0); Total Protein 5.5 g/dL (6.4-8.9)
[2016-07-28] MEDS: Insulin LISPRO* 1 UNITS UNIT SUBCUT SCH ×3 (08:47→18:01)
[2016-07-28] MEDS: Tamsulosin CAP* 0.4 MG PO SCH (08:47)
[2016-07-28] MEDS: buPROPion SR TAB.SR* 100 MG PO SCH (08:47)
[2016-07-28] MEDS: Lisinopril TAB* 10 MG PO SCH (08:47)
[2016-07-28 13:03] LABS: AFP Tumor Marker 1.3 ng/mL (<6.0)
--- NOTE | 2016-07-28 16:48 | PN ---
Progress Note - Progress Note SOAP: Subjective: []He feels a little better. Ate well yesterday. No new complaints, no fevers. Acetaminophen (Tylenol Tab*) 650 mg PO Q6H PRN PRN Reason: FEVER/PAIN Acetaminophen/Hydrocodone Bitart ([place] 5-325 Tab*) 1 tab PO Q4H PRN PRN Reason: PAIN Bupropion HCl (Wellbutrin Sr Tab*) 100 mg PO QAM [facility] Last Admin: 07/28/16 08:47 Dose: 100 mg Dextrose (D50w Syringe 50 Ml*) 12.5 gm IV PUSH .FOR FS < 60 - SS PRN PRN Reason: FS < 60 Insulin Glargine (Lantus(*)) 15 units SUBCUT Q24H [facility] Insulin Human Lispro (Humalog*) 0 units SUBCUT AC [facility] PRN Reason: Protocol Last Admin: 07/28/16 12:30 Dose: 6 units Iodixanol (Visipaque 320 (Contrast)) 83 ml IV ONCE [facility] Stop: 07/29/16 23:59 Lisinopril (Prinivil Tab*) 20 mg PO DAILY [facility] Last Admin: 07/28/16 08:47 Dose: 20 mg Nitroglycerin (Nitroglycerin Tab 0.4 Mg*) 0.4 mg SL Q5M PRN PRN Reason: ANGINA Last Admin: 07/26/16 22:16 Dose: 0.4 mg Ondansetron HCl (Zofran Inj*) 4 mg IV Q6H PRN PRN Reason: NAUSEA Last Admin: 07/28/16 01:33 Dose: 4 mg Tamsulosin HCl (Flomax Cap*) 0.4 mg PO DAILY [facility] Last Admin: 07/28/16 08:47 Dose: 0.4 mg Tramadol HCl (Ultram*) 50 mg PO Q6H PRN PRN Reason: PAIN Objective: [] Vital Signs Temp Pulse Resp BP Pulse Ox 98.6 F 110 16 146/82 90 07/28/16 11:23 07/28/16 11:23 07/28/16 11:23 07/28/16 11:23 07/28/16 11:23 HEENT: Mucosa moist, no LAD. No jaundice CTA RRR S1S2 Liver edge is palpable, non tender, no spleen tip on my exam. Exam in past wit LLQ tenderness but no liver edge. 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 Now with increased LFTs, cytopenias, low grade fever. Fever better today and feels better, blood work unchanged. Ddx: viral syndrome is most likely with cytopenias and LFT changes secondary. The CT appears to show chronic liver inflammation, possible underlying dysfunction, fatty liver. Malignant differential for a liver lesion is metastatic Merckle cell cancer over primary HCC. Plan: []1. Agree with MRI if liver 2. Leukopenia and thrombocytopenia could be from acute illness or represent progression of CLL. Will follow and if remain low will need therapy for CLL. 3. Will follow up on viral studies, follow LFTs. 4. Telemetry and LISA for chest pain.
--- NOTE | 2016-07-28 17:10 | PN ---
Subjective Date of Service: 07/28/16 Interval History: This is an 81 yo gentleman with a remote h/o Merckle cell CA and CLL who presented with abdominal pain and n/v/d. He has a low density lesion appreciated on liver imaging. Liver appears enlarged and nodular, no other acute pathology appreciated on imaging. Noted transaminitis and elevated Tbili with leukopenia and thrombocytopenia. Hepatitis panel negative. Heme/onc has been consulted and suggested etiology may be viral v malignant. Patient has had no significant changes in symptoms today. No further vomiting or diarrhea. Some abdominal pain. Appetite is ok. Still quite fatigued. Objective Active Medications: Acetaminophen (Tylenol Tab*) 650 mg PO Q6H PRN PRN Reason: FEVER/PAIN Acetaminophen/Hydrocodone Bitart ([place] 5-325 Tab*) 1 tab PO Q4H PRN PRN Reason: PAIN Bupropion HCl (Wellbutrin Sr Tab*) 100 mg PO QAM [facility] Last Admin: 07/28/16 08:47 Dose: 100 mg Dextrose (D50w Syringe 50 Ml*) 12.5 gm IV PUSH .FOR FS < 60 - SS PRN PRN Reason: FS < 60 Insulin Glargine (Lantus(*)) 15 units SUBCUT Q24H [facility] Insulin Human Lispro (Humalog*) 0 units SUBCUT AC [facility] PRN Reason: Protocol Last Admin: 07/28/16 12:30 Dose: 6 units Iodixanol (Visipaque 320 (Contrast)) 83 ml IV ONCE [facility] Stop: 07/29/16 23:59 Lisinopril (Prinivil Tab*) 20 mg PO DAILY [facility] Last Admin: 07/28/16 08:47 Dose: 20 mg Nitroglycerin (Nitroglycerin Tab 0.4 Mg*) 0.4 mg SL Q5M PRN PRN Reason: ANGINA Last Admin: 07/26/16 22:16 Dose: 0.4 mg Ondansetron HCl (Zofran Inj*) 4 mg IV Q6H PRN PRN Reason: NAUSEA Last Admin: 07/28/16 01:33 Dose: 4 mg Tamsulosin HCl (Flomax Cap*) 0.4 mg PO DAILY [facility] Last Admin: 07/28/16 08:47 Dose: 0.4 mg Tramadol HCl (Ultram*) 50 mg PO Q6H PRN PRN Reason: PAIN Vital Signs: Temp Pulse Resp BP Pulse Ox 98.6 F 110 16 146/82 90 07/28/16 11:23 07/28/16 11:23 07/28/16 11:23 07/28/16 11:23 07/28/16 11:23 Oxygen Devices in Use Now: None Appearance: Patient is sleeping, accompanied by family. They do not want him to be aroused for a full exam. Result Diagrams: 07/28/16 05:18 07/28/16 05:18 Microbiology and Other Data: Microbiology 07/26/16 01:15 Stool Gross Appearance - Final Stool C. difficile DNA Amplification - Final 027 Presumptive NEGATIVE Toxigenic C.diff NEGATIVE Stool Lactoferrin - Final - Final 07/26/16 01:15 Stool Gross Appearance - Final Stool Rotavirus Antigen - Final Negative Rotavirus 07/25/16 22:55 Influenza Types A,B Antigen (LAKESHIA) - Final Nasal Specimen received for Influenza A/B Molecular testing Assess/Plan/Problems-Billing Assessment: Mr. Tavares is an 81 yo male with a PMH of CLL, DM, HTN, HLD, back pain, depression, PUD, nephrolithiasis, diverticulitis, and Nelson Cell cancer who presented to the ED on 07/25/16 with weakness, diarrhea, and vomiting. - Patient Problems (1) Liver mass Comment: Appreciate GI consult. Hepatitis panel negative. MRI pending for Saturday (2) Elevated LFTs Comment: Elevated AST/ALT with elevated Tbili Neg hepatitis panel ? viral syndrome US neg for biliary pathology EBV and CMV serology pending (3) Abdominal pain Comment: With n/v/d Abd pain persistent, vomiting and diarrhea resolved Possible viral process Hepatitis panel neg Ordered CMV, EBV, and Lyme serologies (4) Thrombocytopenia Comment: With drop in WBC, unclear etiology, ?acute illness. Patient with a history of CLL. Appreciate hematology consult Continue to monitor Lovenox held (5) Ureterolithiasis Comment: Non-obstructive, unlikely to be contributing to acute picture (6) BPH (benign prostatic hyperplasia) Comment: Continue Flomax. (7) CLL (chronic lymphocytic leukemia) Comment: History of CLL New leukopenia and thrombocytopenia may be technology sales representative of recurrence v viral process Dr Tracey consulting Cont to follow CBC Continue outpatient follow-up. (8) Depression Comment: Stable. Continue Wellbutrin. (9) HLD (hyperlipidemia) (10) HTN (hypertension) Comment: Controlled. Continue lisinopril. (11) Type 2 diabetes mellitus Comment: HgbA1c 9.1 FBG still >200 Increase Lantus (12) CHRISTIANO (obstructive sleep apnea) (13) Anxiety Comment: Status and Disposition: Cont inpatient hospital stay. Anticipated discharge in 2-3 days
[2016-07-28] MEDS: Insulin GLARGINE(*) 1 UNITS UNIT SUBCUT SCH (18:00)
[2016-07-29] MEDS ORDERED: Magnesium Hydroxide LIQ* 30 ML UDC PO ONE ×2 (01:37→15:23)
[2016-07-29 05:18] LABS: Hematocrit 36 % (42-52); Mean Corpuscular HGB Conc 33 g/dl (31-36); Mean Corpuscular Hemoglobin 31 pg (27-31); Mean Corpuscular Volume 93 fL (80-94); Mean Platelet Volume 9 um3 (7.4-10.4); Red Blood Count 3.89 10^6/ul (4.0-5.4); Red Cell Distribution Width 15 % (10.5-15)
[2016-07-29 05:20] LABS: Comments Flag Yes; White Blood Count 2.2 10^3/ul (3.5-10.8)
[2016-07-29 05:31] LABS: BUN/Creatinine Ratio 12.5 (8-20); EGFR African American 96.4 (>60); Potassium 3.7 mmol/L (3.5-5.0)
[2016-07-29 08:03] LABS: C Reactive Protein 27.64 mg/L (< 5.00); Total Bilirubin 2.4 mg/dL (0.2-1.0)
[2016-07-29] MEDS: Insulin LISPRO* 1 UNITS UNIT SUBCUT SCH ×3 (08:28→16:43)
[2016-07-29] MEDS: Lisinopril TAB* 10 MG PO SCH (08:28)
[2016-07-29] MEDS: Docusate CAP* 100 MG PO SCH ×2 (08:28→23:13)
[2016-07-29] MEDS: Tamsulosin CAP* 0.4 MG PO SCH (08:28)
[2016-07-29] MEDS ORDERED: NS 0.9% 1000 ML* 1,000 ML IV SCH (08:30)
--- NOTE | 2016-07-29 08:53 | PN ---
Subjective Date of Service: 07/29/16 Interval History: Patient reports improvement in his energy level today. He was up early and walked 2 laps around the nursing station without dyspnea, chest pain, or abdominal pain. He states that he feels bloated and constipated and requested an enema. Reports improvement in abdominal pain however and no nausea or vomiting. Appetite is still poor. Objective Active Medications: Acetaminophen (Tylenol Tab*) 650 mg PO Q6H PRN PRN Reason: FEVER/PAIN Acetaminophen/Hydrocodone Bitart ([place] 5-325 Tab*) 1 tab PO Q4H PRN PRN Reason: PAIN Bupropion HCl (Wellbutrin Sr Tab*) 100 mg PO QAM [facility] Last Admin: 07/28/16 08:47 Dose: 100 mg Dextrose (D50w Syringe 50 Ml*) 12.5 gm IV PUSH .FOR FS < 60 - SS PRN PRN Reason: FS < 60 Docusate Sodium (Colace Cap*) 200 mg PO BID [facility] Last Admin: 07/29/16 08:28 Dose: 200 mg Sodium Chloride (Ns 0.9% 1000 Ml*) 1,000 mls @ 75 mls/hr IV PER RATE [facility] Stop: 07/29/16 21:49 Insulin Glargine (Lantus(*)) 15 units SUBCUT Q24H [facility] Last Admin: 07/28/16 18:00 Dose: 15 units Insulin Human Lispro (Humalog*) 0 units SUBCUT AC [facility] PRN Reason: Protocol Last Admin: 07/29/16 08:28 Dose: 6 units Iodixanol (Visipaque 320 (Contrast)) 83 ml IV ONCE [facility] Stop: 07/29/16 23:59 Lisinopril (Prinivil Tab*) 20 mg PO DAILY [facility] Last Admin: 07/29/16 08:28 Dose: 20 mg Nitroglycerin (Nitroglycerin Tab 0.4 Mg*) 0.4 mg SL Q5M PRN PRN Reason: ANGINA Last Admin: 07/26/16 22:16 Dose: 0.4 mg Ondansetron HCl (Zofran Inj*) 4 mg IV Q6H PRN PRN Reason: NAUSEA Last Admin: 07/28/16 01:33 Dose: 4 mg Sodium Biphosphate/Sodium Phosphate (Fleet Enema*) 1 bottle DC ONCE [facility] Stop: 07/29/16 09:01 Tamsulosin HCl (Flomax Cap*) 0.4 mg PO DAILY [facility] Last Admin: 07/29/16 08:28 Dose: 0.4 mg Tramadol HCl (Ultram*) 50 mg PO Q6H PRN PRN Reason: PAIN Vital Signs: Temp Pulse Resp BP Pulse Ox 98.9 F 120 16 147/78 98 07/29/16 03:51 07/29/16 03:51 07/29/16 03:51 07/29/16 03:51 07/29/16 04:33 Oxygen Devices in Use Now: None Appearance: Well appearing, alert and bright. Telling jokes. In NAD Neck: NL Appearance and Movements; NL JVP Respiratory: Symmetrical Chest Expansion and Respiratory Effort Cardiovascular: NL Sounds; No Murmurs; No JVD, RRR Abdominal: - - BS present, hepatomegaly noted with some TTP, some mild diffuse TTP Extremities: No Edema Skin: No Rash or Ulcers Neurological: Alert and Oriented x 3 Result Diagrams: 07/29/16 05:06 07/29/16 05:06 Additional Lab and Data: Laboratory Tests 07/25/16 07/27/16 07/29/16 14:50 06:07 05:06 C-Reactive Protein 44.83 H 27.64 H Tumor Marker AFP 1.3 Anti-Nuclear Antibody 0.3 Microbiology and Other Data: Microbiology 07/26/16 01:15 Stool Gross Appearance - Final Stool C. difficile DNA Amplification - Final 027 Presumptive NEGATIVE Toxigenic C.diff NEGATIVE Stool Lactoferrin - Final - Final 07/26/16 01:15 Stool Gross Appearance - Final Stool Rotavirus Antigen - Final Negative Rotavirus 07/25/16 22:55 Influenza Types A,B Antigen (LAKESHIA) - Final Nasal Specimen received for Influenza A/B Molecular testing Assess/Plan/Problems-Billing Assessment: Mr. Tavares is an 81 yo male with a PMH of CLL, DM, HTN, HLD, back pain, depression, PUD, nephrolithiasis, diverticulitis, and [place] Cell cancer who presented to the ED on 07/25/16 with weakness, diarrhea, and vomiting. - Patient Problems (1) Liver mass Comment: Appreciate GI consult. Hepatitis panel negative. EITAN and AFP also neg MRI pending for tomorrow (2) Elevated LFTs Comment: Elevated AST/ALT with elevated Tbili which appear to be stable Neg hepatitis panel ? viral syndrome US neg for biliary pathology EBV and CMV serology pending (3) Abdominal pain Comment: With n/v/d Abd pain is improving vomiting and diarrhea resolved Possible viral process Hepatitis panel neg CMV, EBV, and Lyme serologies pending (4) Thrombocytopenia Comment: With drop in WBC, unclear etiology, ?acute illness. Noted some improvement in ANC today and plt count remains stable Patient with a history of CLL. Appreciate hematology consult Continue to monitor Lovenox held (5) Hyponatremia Comment: Possibly due to poor oral intake over the last 48h or so Will give 1L of NS slowly today (6) Ureterolithiasis Comment: Non-obstructive, unlikely to be contributing to acute picture (7) BPH (benign prostatic hyperplasia) Comment: Continue Flomax. (8) CLL (chronic lymphocytic leukemia) Comment: History of CLL New leukopenia and thrombocytopenia may be professional healthcare representative of recurrence v viral process Dr Tracey consulting Cont to follow CBC Continue outpatient follow-up. (9) Depression Comment: Stable. Continue Wellbutrin. (10) HLD (hyperlipidemia) (11) HTN (hypertension) Comment: Controlled. Continue lisinopril. (12) Type 2 diabetes mellitus Comment: HgbA1c 9.1 FBG still >200 Increased Lantus yesterday, will monitor for today and may increase Lantus further tomorrow (13) CHRISTIANO (obstructive sleep apnea) (14) Anxiety Comment: Status and Disposition: Cont inpatient hospital stay. Anticipated discharge in 1-2 days. MRI pending for tomorrow
[2016-07-29] MEDS ORDERED: Sodium Phosphate ADULT ENEMA* 118 ml bottle PR ONE (09:00)
[2016-07-29] MEDS: buPROPion SR TAB.SR* 100 MG PO SCH (09:05)
--- NOTE | 2016-07-29 14:01 | ECHO ---
Patient: JAX HULL [facility] Rec#: [id number] : 1935 Date: 07/29/2016 Age: 81y Height: 172.72 cm / 68.0 in Weight: 88.9 kg / 195.9 lbs Sex: M BSA: 2.03 Room#: 452 Admit Date#: 07/26/2016 Type: Inpatient Referring: Jessica Rangel Reading: Garth Li MD [employer] Dean: Ni Khan RDCS CC: Shin Tracey MD CC: Cornel Solorzano MD Transthoracic Echocardiogram Indication: Resp Abn BP: 147/78 HR: 113 Rhythm: Tachycardia Findings History: Former smoker,CLL,DM,HTN,HLD,depression,CHRISTIANO,Nelson cell cancer, chemotherapy. Technical Comments: The study quality is good. Completed at 1117. Left Ventricle: The left ventricular chamber size is decreased. Mild concentric left ventricular hypertrophy is observed. Global left ventricular wall motion and contractility are within normal limits. There is normal left ventricular systolic function. The estimated ejection fraction is 55-60%. Normal left ventricular diastolic filling is observed. Left Atrium: The left atrium is mild to moderately dilated. Right Ventricle: The right ventricular cavity size is normal. The right ventricular global systolic function is normal. Right Atrium: The right atrial cavity size is normal. Aortic Valve: The aortic valve is trileaflet. There is no evidence of aortic regurgitation. There is no evidence of aortic stenosis. Mitral Valve: The mitral valve leaflets appear normal. There is a trace of mitral regurgitation. There is no evidence of mitral stenosis. Tricuspid Valve: The tricuspid valve leaflets are normal. There is mild to moderate tricuspid regurgitation. There is evidence of mild pulmonary hypertension. There is no tricuspid stenosis. Pulmonic Valve: The pulmonic valve structure is not well visualized. Pericardium: A pericardial effusion is visualized. A trivial pericardial effusion is visualized. A pericardial fat pad is visualized. Aorta: There is mild dilatation of the ascending aorta.(3.7 cm) There is no dilatation of the aortic arch. Pulmonary Artery: The main pulmonary artery appears normal. Venous: The venous system is not well visualized. Conclusions Mild concentric left ventricular hypertrophy is observed. Global left ventricular wall motion and contractility are within normal limits. There is normal left ventricular systolic function. The estimated ejection fraction is 55-60%. There is no evidence of aortic stenosis. There is a trace of mitral regurgitation. There is mild to moderate tricuspid regurgitation. There is evidence of mild pulmonary hypertension. A trivial pericardial effusion is visualized. There is mild dilatation of the ascending aorta.(3.7 cm) Measurements Name Value Normal Range RVIDd (AP) 2D 3.3 cm (0.9 - 2.6) RVDdMajor (2D) 3.6 cm (2.2 - 4.4) RAd ISD 4CH 4.7 cm (3.4 - 4.9) RA (A4C)W 3 cm (2.9 - 4.6) IVSd (2D) 1.1 cm (0.6 - 1) LVPWd (2D) 1.2 cm (0.6 - 1) LVIDd (2D) 3.3 cm (3.6 - 5.4) LVIDs (2D) 1.9 cm - LV FS (2D) 42 % (25 - 45) Aortic Annulus 2.5 cm (1.4 - 2.6) Ao root diameter (2D) 3.4 cm (2.1 - 3.5) Ascending Ao 3.7 cm (2.1 - 3.4) Aortic arch 2.9 cm (1.8 - 3.4) Descending Ao 0.8 cm - LA dimension (AP) 2D 4.4 cm (2.3 - 3.8) LAd ISD 4CH 4.9 cm (2.9 - 5.3) LA ISD 4CH W 3.9 cm (2.5 - 4.5) Name Value Normal Range LA ESV SP 4CH (A/L) 52 ml - LA ESV SP 2CH (A/L) 26 ml - LA ESV BP (A/L) 40 ml - LA ESV BP (A/L) index 19.58 ml/m2 - LA ESV SP 4CH (MOD) 50 ml - LA ESV SP 2CH (MOD) 24 ml - Name Value Normal Range MV E-wave Vmax 0.8 m/sec - MV deceleration time 141 msec - MV A-wave Vmax 0.5 m/sec - MV E:A ratio 1.72 ratio - LV septal e' Vmax 0.07 m/sec - LV lateral e' Vmax 0.09 m/sec - LV E:e' septal ratio 11.42 ratio - LV E:e' lateral ratio 8.89 ratio - Name Value Normal Range AV Vmax 1.8 m/sec - AV VTI 30 cm - AV peak gradient 12.28 mmHg - AV mean gradient 5.76 mmHg - LVOT Vmax 0.9 m/sec - LVOT VTI 19.8 cm - LVOT peak gradient 3.18 mmHg - LVOT mean gradient 1.71 mmHg - Name Value Normal Range TR Vmax 3 m/sec - TR peak gradient 36 mmHg - RAP 8 mmHg - RVSP 44 mmHg -
[2016-07-29] MEDS ORDERED: Magnesium Hydroxide LIQ* 30 ML UDC ONE (15:25)
[2016-07-29] MEDS: Insulin GLARGINE(*) 1 UNITS UNIT SUBCUT SCH (16:43)
[2016-07-30 06:50] LABS: Comments Flag Yes; Hematocrit 40 % (42-52); Hemoglobin 13.4 g/dl (14.0-18.0); Mean Corpuscular HGB Conc 33 g/dl (31-36); Mean Corpuscular Hemoglobin 31 pg (27-31); Mean Corpuscular Volume 93 fL (80-94); Mean Platelet Volume 10 um3 (7.4-10.4); Red Blood Count 4.31 10^6/ul (4.0-5.4); Red Cell Distribution Width 16 % (10.5-15); White Blood Count 3.6 10^3/ul (3.5-10.8)
[2016-07-30 07:06] LABS: Albumin 3.2 g/dL (3.2-5.2); BUN/Creatinine Ratio 12.6 (8-20); C Reactive Protein 29.38 mg/L (< 5.00); Calcium 10.2 mg/dL (8.6-10.3); EGFR African American 88.9 (>60); EGFR Non-African American 69.1 (>60); Globulin 2.9 g/dL (2-4); Total Bilirubin 3.3 mg/dL (0.2-1.0); Total Protein 6.1 g/dL (6.4-8.9)
[2016-07-30] MEDS: buPROPion SR TAB.SR* 100 MG PO SCH (08:32)
[2016-07-30] MEDS: Lisinopril TAB* 10 MG PO SCH (08:32)
[2016-07-30] MEDS: Tamsulosin CAP* 0.4 MG PO SCH (08:32)
[2016-07-30] MEDS: Insulin LISPRO* 1 UNITS UNIT SUBCUT SCH ×3 (08:32→17:47)
[2016-07-30] MEDS: Docusate CAP* 100 MG PO SCH ×2 (08:35→21:59)
[2016-07-30] MEDS ORDERED: Gadoxetate* (CONTRAST) 181.43 MG/ML 10 ML SDV IV ONE (10:59)
--- NOTE | 2016-07-30 11:29 | PN ---
Progress Note - Progress Note SOAP: Subjective: []Not feeling well. Still abdominal pain and not eating much. Some chills, no fevers. Has some diarrhea. Acetaminophen (Tylenol Tab*) 650 mg PO Q6H PRN PRN Reason: FEVER/PAIN Acetaminophen/Hydrocodone Bitart ([place] 5-325 Tab*) 1 tab PO Q4H PRN PRN Reason: PAIN Bupropion HCl (Wellbutrin Sr Tab*) 100 mg PO QAM [facility] Last Admin: 07/30/16 08:32 Dose: 100 mg Dextrose (D50w Syringe 50 Ml*) 12.5 gm IV PUSH .FOR FS < 60 - SS PRN PRN Reason: FS < 60 Docusate Sodium (Colace Cap*) 200 mg PO BID [facility] Last Admin: 07/30/16 08:35 Dose: Not Given Insulin Glargine (Lantus(*)) 15 units SUBCUT Q24H [facility] Last Admin: 07/29/16 16:43 Dose: 15 units Insulin Human Lispro (Humalog*) 0 units SUBCUT AC [facility] PRN Reason: Protocol Last Admin: 07/30/16 08:32 Dose: 6 units Lisinopril (Prinivil Tab*) 20 mg PO DAILY [facility] Last Admin: 07/30/16 08:32 Dose: 20 mg Nitroglycerin (Nitroglycerin Tab 0.4 Mg*) 0.4 mg SL Q5M PRN PRN Reason: ANGINA Last Admin: 07/26/16 22:16 Dose: 0.4 mg Ondansetron HCl (Zofran Inj*) 4 mg IV Q6H PRN PRN Reason: NAUSEA Last Admin: 07/28/16 01:33 Dose: 4 mg Tamsulosin HCl (Flomax Cap*) 0.4 mg PO DAILY [facility] Last Admin: 07/30/16 08:32 Dose: 0.4 mg Tramadol HCl (Ultram*) 50 mg PO Q6H PRN PRN Reason: PAIN Objective: [] Vital Signs Temp Pulse Resp BP Pulse Ox 98.3 F 112 13 147/76 92 07/30/16 08:49 07/30/16 07:57 07/30/16 10:05 07/30/16 07:57 07/30/16 07:57 HEENT: Mucosa moist, no LAD. No jaundice CTA RRR S1S2 Liver edge is palpable, non tender, no spleen tip on my exam. Exam in past wit LLQ tenderness but no liver edge. Ext tr edema, warm Labs reviewed. 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 Now with increased LFTs, cytopenias, low grade fever. Blood counts improved today, LFTs still elevated. Ddx: viral syndrome is most likely with cytopenias and LFT changes secondary. The CT appears to show chronic liver inflammation, possible underlying dysfunction, fatty liver. Malignant differential for a liver lesion is metastatic Merckle cell cancer, other primary, normal AFP decreased probability of HCC. The duration of his symptoms are concerning and await MRI liver. Plan: []1. Agree with MRI if liver 2. Leukopenia and thrombocytopenia could be from acute illness or represent progression of CLL. No intervention, if counts drop again can check bone marrow biopsy. Will send Quantitative Immunoglobulins and SPEP. 3. Will follow CMV, EBV. Consider HIV testing 4. Evaluate need to be in hospital after MRI liver. He will tell his he may need to stay
--- NOTE | 2016-07-30 13:52 | RAD ---
Indication: CT findings consistent with cirrhosis with low-density lesion in the inferior RIGHT lobe of the liver as well as celiac axis and portacaval lymphadenopathy. Comparison: July 27, 2016 CT chest and July 25, 2016 CT abdomen pelvis. Technique: [email or web address] [place] 1.5 Cathy [id number] with GEM suite. MRI liver/abdomen without and with contrast. 9 mL Eovist administered IV. Multiphasic angiographic phase and 20 minute delayed hepatocellular phase postcontrast series obtained. Report: 24 cm cephalocaudal liver with mildly nodular surface contour. Ill-defined 2.6 x 2.2 cm axial plane T2 mildly hyperintense lesion in the RIGHT anterior hepatic segment corresponding with the hypodense region on prior CT. Subtle progressive enhancement of the lesion on the multiphasic postcontrast series. No compelling enhancement within this region on the hepatocellular phase series. 1.7 x 1.3 cm well demarcated T2 mildly hyperintense subcapsular lesion at the RIGHT posterior hepatic segment fails to demonstrate enhancement on the multiphasic angiographic postcontrast series or the delayed hepatocellular phase series. Innumerable subcentimeter mildly T2 hyperintense nodular lesions throughout the RIGHT and LEFT hepatic lobes with none demonstrating compelling enhancement on the postcontrast series. Small volume of perihepatic and perisplenic ascites. Negative for biliary dilatation. Post cholecystectomy. Moderately atrophic pancreas. Splenomegaly. 2.1 cm short axis hepatic artery lymph node. 2.4 cm short axis portal caval lymph node. 2.4 cm short axis RIGHT celiac axis lymph node. 1.0 cm RIGHT retrocrural lymph node RIGHT lateral to the T12 vertebral body. Unremarkable adrenal glands. No suspicious renal lesions evident. Innumerable T2 hyperintense and enhancing lesions throughout the visualized bony thorax including the thoracic spine, ribs, sternum as well as the visualized lumbar spine and iliac crest. IMPRESSION: 1. Stigmata of metastatic cancer with enlarged hepatic artery, portal caval, celiac axis, and RIGHT retrocrural lymph nodes as well as diffuse bone metastasis. Cirrhotic liver morphology with innumerable nodules an infiltrating lesion most consistent with a hepatocellular carcinoma in the RIGHT hepatic lobe ([place] segment V). Small size of the diffuse hepatic nodules limits characterization however the differential includes regenerative nodules, dysplastic nodules, and metastatic disease. 2. Stigmata of portal hypertension including splenomegaly and small volume of ascites. 3. Consider ultrasound-guided biopsy of the dominant RIGHT hepatic lobe lesion with ultrasound conspicuity documented on July 25, 2016 ultrasound. Additionally consider endoscopic biopsy of the hepatic artery lymph node to document metastatic disease. 4. The noted bone metastasis on MRI are poorly visualized even in retrospect on CT limiting utility of CT for image guided bone biopsy.
[2016-07-30] MEDS ORDERED: LORazepam INJ* 2 MG/ML 1 ML VIAL IV PUSH ONE (16:00)
[2016-07-30] MEDS: HYDROcodone/ACETAMIN 5-325 MG* 1 TAB PO PRN (16:13)
--- NOTE | 2016-07-30 17:12 | PN ---
Subjective Date of Service: 07/30/16 Interval History: Patient reports poor energy and reduced appetite. Some abdominal pain. No n/ v. Feelings of constipation have resolved and he has had a soft BM. Objective Active Medications: Acetaminophen (Tylenol Tab*) 650 mg PO Q6H PRN PRN Reason: FEVER/PAIN Acetaminophen/Hydrocodone Bitart ([place] 5-325 Tab*) 1 tab PO Q4H PRN PRN Reason: PAIN Last Admin: 07/30/16 16:13 Dose: 1 tab Bupropion HCl (Wellbutrin Sr Tab*) 100 mg PO QAM [facility] Last Admin: 07/30/16 08:32 Dose: 100 mg Dextrose (D50w Syringe 50 Ml*) 12.5 gm IV PUSH .FOR FS < 60 - SS PRN PRN Reason: FS < 60 Docusate Sodium (Colace Cap*) 200 mg PO BID [facility] Last Admin: 07/30/16 08:35 Dose: Not Given Insulin Glargine (Lantus(*)) 15 units SUBCUT Q24H [facility] Last Admin: 07/29/16 16:43 Dose: 15 units Insulin Human Lispro (Humalog*) 0 units SUBCUT AC [facility] PRN Reason: Protocol Last Admin: 07/30/16 12:43 Dose: 3 units Lisinopril (Prinivil Tab*) 20 mg PO DAILY [facility] Last Admin: 07/30/16 08:32 Dose: 20 mg Nitroglycerin (Nitroglycerin Tab 0.4 Mg*) 0.4 mg SL Q5M PRN PRN Reason: ANGINA Last Admin: 07/26/16 22:16 Dose: 0.4 mg Ondansetron HCl (Zofran Inj*) 4 mg IV Q6H PRN PRN Reason: NAUSEA Last Admin: 07/28/16 01:33 Dose: 4 mg Tamsulosin HCl (Flomax Cap*) 0.4 mg PO DAILY [facility] Last Admin: 07/30/16 08:32 Dose: 0.4 mg Tramadol HCl (Ultram*) 50 mg PO Q6H PRN PRN Reason: PAIN Vital Signs: Temp Pulse Resp BP Pulse Ox 98.6 F 109 16 133/69 91 07/30/16 15:56 07/30/16 15:56 07/30/16 16:26 07/30/16 15:56 07/30/16 15:56 Oxygen Devices in Use Now: None Appearance: Well appearing elderly male in NAD. Appears fatigued Neck: NL Appearance and Movements; NL JVP Respiratory: Symmetrical Chest Expansion and Respiratory Effort Cardiovascular: NL Sounds; No Murmurs; No JVD, RRR Abdominal: NL Sounds; No Tenderness; No Distention, - - hepatomegaly noted Extremities: No Edema Skin: No Rash or Ulcers Neurological: Alert and Oriented x 3 Result Diagrams: 07/30/16 06:11 07/30/16 06:11 Additional Lab and Data: Laboratory Tests 07/25/16 07/27/16 07/29/16 14:50 06:07 05:06 C-Reactive Protein 44.83 H 27.64 H Tumor Marker AFP 1.3 Anti-Nuclear Antibody 0.3 Microbiology and Other Data: Microbiology 07/26/16 01:15 Stool Gross Appearance - Final Stool C. difficile DNA Amplification - Final 027 Presumptive NEGATIVE Toxigenic C.diff NEGATIVE Stool Lactoferrin - Final - Final 07/26/16 01:15 Stool Gross Appearance - Final Stool Rotavirus Antigen - Final Negative Rotavirus 07/25/16 22:55 Influenza Types A,B Antigen (LAKESHIA) - Final Nasal Specimen received for Influenza A/B Molecular testing Assess/Plan/Problems-Billing Assessment: Mr. Tavares is an 81 yo male with a PMH of CLL, DM, HTN, HLD, back pain, depression, PUD, nephrolithiasis, diverticulitis, and Nelson Cell cancer who presented to the ED on 07/25/16 with weakness, diarrhea, and vomiting. - Patient Problems (1) Liver mass Comment: MRI is unfortunately suggestive of a malignant process with bony involvement Liver biopsy is pending for tomorrow afternoon Hepatitis panel negative. EITAN and AFP also neg (2) Elevated LFTs Comment: Elevated AST/ALT with elevated Tbili which seem to be slowly increasing Likely related to liver mass that is suggestive of malignancy, bx pending Neg hepatitis panel Viral syndrome is still on the differential EBV and CMV serology still pending US neg for biliary pathology (3) Abdominal pain Comment: With n/v/d Abd pain is improving vomiting and diarrhea resolved Possible viral process Hepatitis panel neg CMV, EBV, and Lyme serologies pending (4) Thrombocytopenia Comment: With drop in WBC, unclear etiology, ?acute illness v malignancy Noted improvement in ANC today and plt count remains stable but slightly improved Patient with a history of CLL. Appreciate hematology consult Continue to monitor Lovenox held Will repeat CBC tomorrow, if plt count <50K will transfuse 1U of platelets prior to liver biopsy (5) Hyponatremia Comment: Resolved (6) Ureterolithiasis Comment: Non-obstructive, unlikely to be contributing to acute picture (7) BPH (benign prostatic hyperplasia) Comment: Continue Flomax. 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 (9) Depression Comment: Stable. Continue Wellbutrin. (10) HLD (hyperlipidemia) (11) HTN (hypertension) Comment: Controlled. Continue lisinopril. (12) Type 2 diabetes mellitus Comment: HgbA1c 9.1 FBG still >200 Increased Lantus yesterday, will monitor for today and may increase Lantus further tomorrow (13) CHRISTIANO (obstructive sleep apnea) (14) Anxiety Comment: Status and Disposition: Cont inpatient hospital stay. Pending liver biopsy for tomorrow. Concern for malignant process. Discharge planning is not clear at this time.
[2016-07-30] MEDS: Insulin GLARGINE(*) 1 UNITS UNIT SUBCUT SCH (17:46)
[2016-07-30] MEDS: Morphine INJ* 2 MG/ML 1 ML CARPUJECT IV PRN (18:56)
[2016-07-30] MEDS: Nitroglycerin TAB 0.4 MG* 0.4 MG TAB SL PRN ×2 (20:03→20:18)
[2016-07-30] MEDS ORDERED: HYDROmorphone INJ* 1 MG/ML CARPUJECT SYRINGE ONE (20:38)
--- NOTE | 2016-07-30 20:49 | PN ---
Progress Note - Progress Note Note: Nursing reports 10/10 L chest pain w/ systolic 80s manually after SL nitro x2. 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 He denies SOB, N/V, sweats, light-headedness, and palpitations. Pain is worse with inspiration and palpation, better with rest & shallow breathing. He reportedly had similar pain responding to narcotics & lorazepam earlier today. ECG is NSR, no ischemia, unchanged. Labs for lipase, troponin, & lactic acid ordered. 1mg hydromorphone ordered. Vitals: systolic 80s manually, suspect 2nd SL nitro general: elderly white male appearing in moderate discomfort, but no overt distress lungs: CTAB, normal effort CV: RRR, normal S1S2 chest: mild to moderate pain with palpation of inferior L ribs abdomen: moderate pain with palpation of LUQ and epigastrum, NABS, no rebound/ guarding/rigidity extremities: W&D integument: no diaphoresis assessment non-cardiac chest pain : dDx atypical ACS, splenomegaly, stretch of Eileen's capsule, pancreatitis, doubt infection, CTA negative for PE 07/27/2016 : continue telemetry : labs as above : pain control : hepatic BX planned for tomorrow
[2016-07-30 21:25] LABS: Hematocrit 36 % (42-52); Hemoglobin 11.9 g/dl (14.0-18.0); Mean Corpuscular HGB Conc 33 g/dl (31-36); Mean Corpuscular Hemoglobin 31 pg (27-31); Mean Corpuscular Volume 94 fL (80-94); Mean Platelet Volume 9 um3 (7.4-10.4); Red Blood Count 3.86 10^6/ul (4.0-5.4); Red Cell Distribution Width 16 % (10.5-15); White Blood Count 3.5 10^3/ul (3.5-10.8)
[2016-07-30 21:29] LABS: Troponin I 0.04 ng/mL (<0.04)
[2016-07-30 21:33] LABS: Ammonia 100 mol/L (16-53)
[2016-07-30 21:36] LABS: Comments Flag Yes
[2016-07-30 21:39] LABS: B Type Natriuretic Peptide 104 pg/mL
[2016-07-30] MEDS ORDERED: NS 0.9% 1000 ML* 1,000 ML IV ONE (21:45)
[2016-07-30] MEDS ORDERED: Magnesium Sulf 4 GM/100 ML IV* 4,000 MG/100 ML BAG IVPB ONE (22:05)
[2016-07-30 22:43] LABS: Albumin 2.7 g/dL (3.2-5.2); Potassium 3.6 mmol/L (3.5-5.0)
[2016-07-30 22:44] LABS: Direct Bilirubin 1.4 mg/dL (0.03-0.18); Globulin 2.3 g/dL (2-4); Indirect Bilirubin 1.6 mg/dL (0.3-1.0)
[2016-07-31] MEDS: HYDROcodone/ACETAMIN 5-325 MG* 1 TAB PO PRN ×2 (00:06→08:57)
[2016-07-31 05:25] LABS: Urine Bilirubin Negative (Negative); Urine Glucose Negative (Negative); Urine Nitrite Negative (Negative)
[2016-07-31 06:38] LABS: Hematocrit 35 % (42-52); Hemoglobin 11.5 g/dl (14.0-18.0); Mean Corpuscular HGB Conc 33 g/dl (31-36); Mean Corpuscular Hemoglobin 31 pg (27-31); Mean Corpuscular Volume 94 fL (80-94); Mean Platelet Volume 10 um3 (7.4-10.4); Red Blood Count 3.73 10^6/ul (4.0-5.4); Red Cell Distribution Width 15 % (10.5-15)
[2016-07-31 06:42] LABS: Albumin 2.7 g/dL (3.2-5.2); Calcium 9.6 mg/dL (8.6-10.3); Comments Flag Yes; EGFR Non-African American 71.5 (>60); Globulin 2.4 g/dL (2-4); Magnesium 2.7 mg/dL (1.9-2.7); Potassium 3.7 mmol/L (3.5-5.0); Total Bilirubin 2.8 mg/dL (0.2-1.0); Total Protein 5.1 g/dL (6.4-8.9)
[2016-07-31 06:44] LABS: White Blood Count 3.3 10^3/ul (3.5-10.8)
[2016-07-31 07:57] LABS: Troponin I 0.05 ng/mL (<0.04)
[2016-07-31] MEDS: Docusate CAP* 100 MG PO SCH ×2 (08:42→19:31)
[2016-07-31] MEDS: Lisinopril TAB* 10 MG PO SCH (08:42)
[2016-07-31] MEDS: Tamsulosin CAP* 0.4 MG PO SCH (08:43)
[2016-07-31] MEDS: buPROPion SR TAB.SR* 100 MG PO SCH (08:43)
[2016-07-31] MEDS: Insulin LISPRO* 1 UNITS UNIT SUBCUT SCH ×3 (08:43→17:22)
[2016-07-31] MEDS: Morphine INJ* 2 MG/ML 1 ML CARPUJECT IV PRN ×5 (11:36→19:28)
[2016-07-31] MEDS ORDERED: fentaNYL* 50 MCG/ML 2 ML VIAL (100 MCG VIAL) ONE (12:38)
[2016-07-31 14:24] LABS: EBV Capsid Ag IgG Ab Positive (Negative); EBV Capsid Ag IgM Ab Negative (Negative)
[2016-07-31 15:01] LABS: Mean Platelet Volume 9 um3 (7.4-10.4)
[2016-07-31 15:02] LABS: Comments Flag Yes
--- NOTE | 2016-07-31 15:13 | RAD ---
Indication: Right lobe liver mass. Using usual aseptic technique and after obtaining informed consent the mass in the right lobe of liver was localized. Using a 22-gauge Chiba needle 2 passes were made. A 20-gauge Temno needle was then placed within the mass and one core sample was obtained. IMPRESSION: Successful biopsy of a mass in the right lobe of the liver.
[2016-07-31] MEDS: Insulin GLARGINE(*) 1 UNITS UNIT SUBCUT SCH (17:21)
--- NOTE | 2016-07-31 17:47 | PN ---
Subjective Date of Service: 07/31/16 Interval History: Patient is still having some LUQ/flank abdominal pain, but pain seems well controlled with prn IV morphine. Tolerated liver biopsy well. Denies any new complaints. His appetite is improving. Objective Active Medications: Acetaminophen (Tylenol Tab*) 650 mg PO Q6H PRN PRN Reason: FEVER/PAIN Last Admin: 07/31/16 03:36 Dose: 650 mg Acetaminophen/Hydrocodone Bitart ([place] 5-325 Tab*) 1 tab PO Q4H PRN PRN Reason: PAIN Last Admin: 07/31/16 08:57 Dose: 1 tab Bupropion HCl (Wellbutrin Sr Tab*) 100 mg PO QAM [facility] Last Admin: 07/31/16 08:43 Dose: 100 mg Dextrose (D50w Syringe 50 Ml*) 12.5 gm IV PUSH .FOR FS < 60 - SS PRN PRN Reason: FS < 60 Docusate Sodium (Colace Cap*) 200 mg PO BID [facility] Last Admin: 07/31/16 08:42 Dose: 200 mg Insulin Glargine (Lantus(*)) 20 units SUBCUT Q24H [facility] Last Admin: 07/31/16 17:21 Dose: 20 units Insulin Human Lispro (Humalog*) 0 units SUBCUT AC [facility] PRN Reason: Protocol Last Admin: 07/31/16 17:22 Dose: 6 units Lisinopril (Prinivil Tab*) 20 mg PO DAILY [facility] Last Admin: 07/31/16 08:42 Dose: 20 mg Morphine Sulfate (Morphine Inj (Syringe)*) 2 mg IV Q2H PRN PRN Reason: PAIN - MILD Last Admin: 07/31/16 17:20 Dose: 2 mg Nitroglycerin (Nitroglycerin Tab 0.4 Mg*) 0.4 mg SL Q5M PRN PRN Reason: ANGINA Last Admin: 07/30/16 20:18 Dose: 0.4 mg Ondansetron HCl (Zofran Inj*) 4 mg IV Q6H PRN PRN Reason: NAUSEA Last Admin: 07/28/16 01:33 Dose: 4 mg Tamsulosin HCl (Flomax Cap*) 0.4 mg PO DAILY [facility] Last Admin: 07/31/16 08:43 Dose: 0.4 mg Tramadol HCl (Ultram*) 50 mg PO Q6H PRN PRN Reason: PAIN Vital Signs: Temp Pulse Resp BP Pulse Ox 97.6 F 107 18 108/59 94 07/31/16 17:38 07/31/16 17:38 07/31/16 17:38 07/31/16 17:38 07/31/16 17:38 Oxygen Devices in Use Now: None Appearance: Well appearing, but slightly fatigued Respiratory: Symmetrical Chest Expansion and Respiratory Effort, Clear to Auscultation Cardiovascular: NL Sounds; No Murmurs; No JVD, RRR Abdominal: NL Sounds; No Tenderness; No Distention, - - hepatomegaly noted, bx site noted at R flank Extremities: No Edema Skin: No Rash or Ulcers Neurological: Alert and Oriented x 3 Result Diagrams: 07/31/16 14:49 07/31/16 05:58 Additional Lab and Data: Laboratory Tests 07/25/16 07/27/16 07/29/16 14:50 06:07 05:06 C-Reactive Protein 44.83 H 27.64 H Tumor Marker AFP 1.3 Anti-Nuclear Antibody 0.3 Microbiology and Other Data: Microbiology 07/26/16 01:15 Stool Gross Appearance - Final Stool C. difficile DNA Amplification - Final 027 Presumptive NEGATIVE Toxigenic C.diff NEGATIVE Stool Lactoferrin - Final - Final 07/26/16 01:15 Stool Gross Appearance - Final Stool Rotavirus Antigen - Final Negative Rotavirus 07/25/16 22:55 Influenza Types A,B Antigen (LAKESHIA) - Final Nasal Specimen received for Influenza A/B Molecular testing Assess/Plan/Problems-Billing Assessment: Mr. Tavares is an 81 yo male with a PMH of CLL, DM, HTN, HLD, back pain, depression, PUD, nephrolithiasis, diverticulitis, and Nelson Cell cancer who presented to the ED on 07/25/16 with weakness, diarrhea, and vomiting. - Patient Problems (1) Liver mass Comment: MRI is unfortunately suggestive of a malignant process with bony involvement Liver biopsy was completed this afternoon with pathology pending Hepatitis panel negative. EITAN and AFP also neg (2) Elevated LFTs Comment: Elevated AST/ALT with elevated Tbili which seem to be slowly increasing Likely related to liver mass that is suggestive of malignancy, pathology pending Neg hepatitis panel EBV and CMV serology negative US neg for biliary pathology (3) Abdominal pain Comment: With n/v/d Abd pain is improving vomiting and diarrhea resolved Possible viral process Hepatitis panel neg CMV, EBV negative Lyme serologies pending (4) Thrombocytopenia Comment: With drop in WBC, unclear etiology, ?acute illness v malignancy Noted improvement in ANC today and plt count remains fairly stable Patient with a history of CLL. Appreciate hematology consult Continue to monitor Lovenox held Received 1U plts prior to biopsy today (5) Hyponatremia Comment: Resolved (6) Ureterolithiasis Comment: Non-obstructive, unlikely to be contributing to acute picture (7) BPH (benign prostatic hyperplasia) Comment: Continue Flomax. 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 (9) Depression Comment: Stable. Continue Wellbutrin. (10) HLD (hyperlipidemia) (11) HTN (hypertension) Comment: Controlled. Continue lisinopril. (12) Type 2 diabetes mellitus Comment: HgbA1c 9.1 FBG still >200 Will increase Lantus further to 20U (13) CHRISTIANO (obstructive sleep apnea) (14) Anxiety Comment: Status and Disposition: Cont inpatient hospital stay. Pending pathology. Concern for malignant process. Starting to work on discharge planning with family, he and his will need significant assistance at home.
[2016-07-31 18:41] LABS: Immunoglobulin A 179 mg/dL (61 - 356); Immunoglobulin G 817 mg/dL (767 - 1590); Immunoglobulin M 228 mg/dL (37 - 286)
[2016-07-31 18:43] LABS: Venous/Capillary Venous
[2016-08-01 05:23] LABS: Hematocrit 36 % (42-52); Hemoglobin 11.9 g/dl (14.0-18.0); Mean Corpuscular HGB Conc 33 g/dl (31-36); Mean Corpuscular Hemoglobin 31 pg (27-31); Mean Corpuscular Volume 94 fL (80-94); Mean Platelet Volume 10 um3 (7.4-10.4); Red Blood Count 3.84 10^6/ul (4.0-5.4); Red Cell Distribution Width 16 % (10.5-15); White Blood Count 3.5 10^3/ul (3.5-10.8)
[2016-08-01 05:26] LABS: Comments Flag Yes
[2016-08-01 05:27] LABS: Add Diff/Slide Review? Slide Review Added
[2016-08-01 05:47] LABS: Albumin 2.8 g/dL (3.2-5.2); BUN/Creatinine Ratio 15.6 (8-20); Calcium 9.9 mg/dL (8.6-10.3); EGFR African American 103.9 (>60); EGFR Non-African American 80.8 (>60); Globulin 2.5 g/dL (2-4); Potassium 3.6 mmol/L (3.5-5.0); Total Bilirubin 3.2 mg/dL (0.2-1.0); Total Protein 5.3 g/dL (6.4-8.9)
[2016-08-01] MEDS: Lisinopril TAB* 10 MG PO SCH (08:52)
[2016-08-01] MEDS: Insulin LISPRO* 1 UNITS UNIT SUBCUT SCH ×3 (08:53→17:49)
[2016-08-01] MEDS: buPROPion SR TAB.SR* 100 MG PO SCH (08:53)
[2016-08-01] MEDS: Tamsulosin CAP* 0.4 MG PO SCH (08:53)
[2016-08-01] MEDS: Docusate CAP* 100 MG PO SCH ×2 (08:55→21:54)
[2016-08-01] MEDS: Morphine INJ* 2 MG/ML 1 ML CARPUJECT IV PRN ×4 (13:12→21:47)
--- NOTE | 2016-08-01 13:41 | PN ---
Subjective Date of Service: 08/01/16 Interval History: Patient reports some improvement in his energy and pain. He offers no acute complaints today. Apparently overnight, he was being impulsive and getting up without using his call olivo and was a bit unsteady on his feet. He was moved closer to the nurses station. Objective Active Medications: Acetaminophen (Tylenol Tab*) 650 mg PO Q6H PRN PRN Reason: FEVER/PAIN Last Admin: 07/31/16 03:36 Dose: 650 mg Acetaminophen/Hydrocodone Bitart ([place] 5-325 Tab*) 1 tab PO Q4H PRN PRN Reason: PAIN Last Admin: 07/31/16 08:57 Dose: 1 tab Bupropion HCl (Wellbutrin Sr Tab*) 100 mg PO QAM [facility] Last Admin: 08/01/16 08:53 Dose: 100 mg Dextrose (D50w Syringe 50 Ml*) 12.5 gm IV PUSH .FOR FS < 60 - SS PRN PRN Reason: FS < 60 Docusate Sodium (Colace Cap*) 200 mg PO BID [facility] Last Admin: 08/01/16 08:55 Dose: 200 mg Insulin Glargine (Lantus(*)) 20 units SUBCUT Q24H [facility] Last Admin: 07/31/16 17:21 Dose: 20 units Insulin Human Lispro (Humalog*) 0 units SUBCUT AC [facility] PRN Reason: Protocol Last Admin: 08/01/16 13:07 Dose: 6 units Lisinopril (Prinivil Tab*) 20 mg PO DAILY [facility] Last Admin: 08/01/16 08:52 Dose: 20 mg Morphine Sulfate (Morphine Inj (Syringe)*) 2 mg IV Q2H PRN PRN Reason: PAIN - MILD Last Admin: 08/01/16 13:12 Dose: 2 mg Nitroglycerin (Nitroglycerin Tab 0.4 Mg*) 0.4 mg SL Q5M PRN PRN Reason: ANGINA Last Admin: 07/30/16 20:18 Dose: 0.4 mg Ondansetron HCl (Zofran Inj*) 4 mg IV Q6H PRN PRN Reason: NAUSEA Last Admin: 07/28/16 01:33 Dose: 4 mg Tamsulosin HCl (Flomax Cap*) 0.4 mg PO DAILY [facility] Last Admin: 08/01/16 08:53 Dose: 0.4 mg Tramadol HCl (Ultram*) 50 mg PO Q6H PRN PRN Reason: PAIN Vital Signs: Temp Pulse Resp BP Pulse Ox 97.9 F 118 18 122/69 90 08/01/16 11:30 08/01/16 11:30 08/01/16 13:12 08/01/16 11:30 08/01/16 11:30 Oxygen Devices in Use Now: None Appearance: Well appearing, in NAD Respiratory: Symmetrical Chest Expansion and Respiratory Effort, Clear to Auscultation Cardiovascular: NL Sounds; No Murmurs; No JVD, RRR Abdominal: - - bowel sounds present, some LUQ TTP, hepatomegaly Extremities: No Edema Skin: No Rash or Ulcers Neurological: Alert and Oriented x 3 Result Diagrams: 08/01/16 04:31 08/01/16 04:31 Additional Lab and Data: Laboratory Tests 07/25/16 07/27/16 07/29/16 14:50 06:07 05:06 C-Reactive Protein 44.83 H 27.64 H Tumor Marker AFP 1.3 Anti-Nuclear Antibody 0.3 Microbiology and Other Data: Microbiology 07/26/16 01:15 Stool Gross Appearance - Final Stool C. difficile DNA Amplification - Final 027 Presumptive NEGATIVE Toxigenic C.diff NEGATIVE Stool Lactoferrin - Final - Final 07/26/16 01:15 Stool Gross Appearance - Final Stool Rotavirus Antigen - Final Negative Rotavirus 07/25/16 22:55 Influenza Types A,B Antigen (LAKESHIA) - Final Nasal Specimen received for Influenza A/B Molecular testing Assess/Plan/Problems-Billing Assessment: Mr. Tavares is an 81 yo male with a PMH of CLL, DM, HTN, HLD, back pain, depression, PUD, nephrolithiasis, diverticulitis, and Nelson Cell cancer who presented to the ED on 07/25/16 with weakness, diarrhea, and vomiting. - Patient Problems (1) Liver tumor Comment: MRI is unfortunately suggestive of a malignant process with bony involvement Liver biopsy was completed yesterday with pathology pending Hepatitis panel negative. EITAN and AFP also neg (2) Elevated LFTs Comment: Elevated AST/ALT with elevated Tbili which remain persistently elevated Likely related to liver mass that is suggestive of malignancy, pathology pending Neg hepatitis panel EBV and CMV serology negative US neg for biliary pathology (3) Abdominal pain Comment: With n/v/d Abd pain is improving vomiting and diarrhea resolved Possible viral process Hepatitis panel neg CMV, EBV negative Lyme serologies pending (4) Thrombocytopenia Comment: With drop in WBC, unclear etiology, ?acute illness v malignancy ANC has improved and plt count remains fairly stable Patient with a history of CLL. Appreciate hematology consult Continue to monitor Lovenox held Received 1U plts prior to biopsy yesterday (5) Delirium Comment: Secondary to opiate medications Patient was slightly confused and impulsive overnight last night after 2 doses of morphine Appears improved this morning (6) Hyponatremia Comment: Resolved (7) Ureterolithiasis Comment: Non-obstructive, unlikely to be contributing to acute picture (8) BPH (benign prostatic hyperplasia) Comment: Continue Flomax. 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 (10) Depression Comment: Stable. Continue Wellbutrin. (11) HLD (hyperlipidemia) (12) HTN (hypertension) Comment: Controlled. Continue lisinopril. (13) Type 2 diabetes mellitus Comment: HgbA1c 9.1 FBG still >200 Will increase Lantus further to 20U (14) CHRISTIANO (obstructive sleep apnea) (15) Anxiety Comment: Status and Disposition: Cont inpatient hospital stay. Pending pathology. Concern for malignant process. Starting to work on discharge planning with family, he and his will need significant assistance at home. Will meet with his and daughter again this afternoon.
[2016-08-01] MEDS: Ondansetron INJ* 2 MG/ML VIAL IV PRN (15:57)
[2016-08-01 17:04] LABS: Gamma Globulin 1.4 g/dL (0.6-1.6); Total Protein(PEP) 6.5 g/dL (6.3 - 7.9)
[2016-08-01] MEDS: Insulin GLARGINE(*) 1 UNITS UNIT SUBCUT SCH (17:50)
[2016-08-02] MEDS: buPROPion SR TAB.SR* 100 MG PO SCH (08:43)
[2016-08-02] MEDS: Docusate CAP* 100 MG PO SCH ×2 (08:43→20:23)
[2016-08-02] MEDS: Lisinopril TAB* 10 MG PO SCH (08:43)
[2016-08-02] MEDS: Tamsulosin CAP* 0.4 MG PO SCH (08:43)
[2016-08-02] MEDS: Insulin LISPRO* 1 UNITS UNIT SUBCUT SCH ×3 (08:44→17:33)
[2016-08-02 11:00] LABS: Hematocrit 37 % (42-52); Hemoglobin 12.2 g/dl (14.0-18.0); Mean Corpuscular HGB Conc 33 g/dl (31-36); Mean Corpuscular Hemoglobin 31 pg (27-31); Mean Corpuscular Volume 93 fL (80-94); Mean Platelet Volume 9 um3 (7.4-10.4); Red Blood Count 4.01 10^6/ul (4.0-5.4); Red Cell Distribution Width 16 % (10.5-15); White Blood Count 3.5 10^3/ul (3.5-10.8)
[2016-08-02 11:01] LABS: Add Diff/Slide Review? Slide Review Added; Comments Flag Yes
[2016-08-02 11:11] LABS: Albumin 2.7 g/dL (3.2-5.2); BUN/Creatinine Ratio 17.1 (8-20); Calcium 10.4 mg/dL (8.6-10.3); EGFR Non-African American 67.6 (>60); Globulin 2.6 g/dL (2-4); Potassium 3.9 mmol/L (3.5-5.0); Total Bilirubin 3.8 mg/dL (0.2-1.0); Total Protein 5.3 g/dL (6.4-8.9)
[2016-08-02 11:26] LABS: Polychromasia 2+
[2016-08-02] MEDS: Metoprolol Tartrate TAB* 25 MG PO SCH ×2 (12:16→20:23)
[2016-08-02] MEDS: Morphine INJ* 2 MG/ML 1 ML CARPUJECT IV PRN ×2 (13:00→18:52)
[2016-08-02] MEDS ORDERED: Sodium Phosphate ADULT ENEMA* 118 ml bottle PR PRN (16:48)
[2016-08-02] MEDS: Insulin GLARGINE(*) 1 UNITS UNIT SUBCUT SCH (17:32)
[2016-08-02] MEDS ORDERED: Polyethylene Glycol 3350* 17 GM PACKET PO ONE (18:00)
--- NOTE | 2016-08-02 18:27 | PN ---
Subjective Date of Service: 08/02/16 Interval History: Patient has had occasional abdominal pain controlled with morphine. Still feels weak with poor appetite. Offers no new complaints. Objective Active Medications: Acetaminophen (Tylenol Tab*) 650 mg PO Q6H PRN PRN Reason: FEVER/PAIN Last Admin: 07/31/16 03:36 Dose: 650 mg Bupropion HCl (Wellbutrin Sr Tab*) 100 mg PO QAM [facility] Last Admin: 08/02/16 08:43 Dose: 100 mg Dextrose (D50w Syringe 50 Ml*) 12.5 gm IV PUSH .FOR FS < 60 - SS PRN PRN Reason: FS < 60 Docusate Sodium (Colace Cap*) 200 mg PO BID [facility] Last Admin: 08/02/16 08:43 Dose: 200 mg Insulin Glargine (Lantus(*)) 20 units SUBCUT Q24H [facility] Last Admin: 08/02/16 17:32 Dose: 20 units Insulin Human Lispro (Humalog*) 0 units SUBCUT AC [facility] PRN Reason: Protocol Last Admin: 08/02/16 17:33 Dose: 6 units Lisinopril (Prinivil Tab*) 20 mg PO DAILY [facility] Last Admin: 08/02/16 08:43 Dose: 20 mg Metoprolol Tartrate (Lopressor Tab*) 12.5 mg PO Q12HR [facility] Last Admin: 08/02/16 12:16 Dose: 12.5 mg Morphine Sulfate (Morphine Inj (Syringe)*) 2 mg IV Q2H PRN PRN Reason: PAIN - MILD Last Admin: 08/02/16 13:00 Dose: 2 mg Nitroglycerin (Nitroglycerin Tab 0.4 Mg*) 0.4 mg SL Q5M PRN PRN Reason: ANGINA Last Admin: 07/30/16 20:18 Dose: 0.4 mg Ondansetron HCl (Zofran Inj*) 4 mg IV Q6H PRN PRN Reason: NAUSEA Last Admin: 08/01/16 15:57 Dose: 4 mg Sodium Biphosphate/Sodium Phosphate (Fleet Enema*) 1 bottle [facility] DAILY PRN PRN Reason: CONSTIPATION Tamsulosin HCl (Flomax Cap*) 0.4 mg PO DAILY [facility] Last Admin: 08/02/16 08:43 Dose: 0.4 mg Tramadol HCl (Ultram*) 50 mg PO Q6H PRN PRN Reason: PAIN Last Admin: 08/02/16 08:43 Dose: 50 mg Vital Signs: Temp Pulse Resp BP Pulse Ox 98.6 F 94 16 117/65 95 08/02/16 15:40 08/02/16 15:40 08/02/16 15:40 08/02/16 15:40 08/02/16 16:38 Oxygen Devices in Use Now: None Appearance: Mildly fatigued appearing, in NAD. Accompanied by , daughter and [id number] Respiratory: Symmetrical Chest Expansion and Respiratory Effort, Clear to Auscultation Cardiovascular: NL Sounds; No Murmurs; No JVD, RRR Abdominal: NL Sounds; No Tenderness; No Distention, - - hepatomegaly noted Extremities: No Edema Skin: No Rash or Ulcers Neurological: Alert and Oriented x 3 Result Diagrams: 08/02/16 10:51 08/02/16 10:51 Additional Lab and Data: Laboratory Tests 07/25/16 07/27/16 07/29/16 14:50 06:07 05:06 C-Reactive Protein 44.83 H 27.64 H Tumor Marker AFP 1.3 Anti-Nuclear Antibody 0.3 Microbiology and Other Data: Microbiology 07/26/16 01:15 Stool Gross Appearance - Final Stool C. difficile DNA Amplification - Final 027 Presumptive NEGATIVE Toxigenic C.diff NEGATIVE Stool Lactoferrin - Final - Final 07/26/16 01:15 Stool Gross Appearance - Final Stool Rotavirus Antigen - Final Negative Rotavirus 07/25/16 22:55 Influenza Types A,B Antigen (LAKESHIA) - Final Nasal Specimen received for Influenza A/B Molecular testing Assess/Plan/Problems-Billing Assessment: Mr. Tavares is an 81 yo male with a PMH of CLL, DM, HTN, HLD, back pain, depression, PUD, nephrolithiasis, diverticulitis, and Larsen Cell cancer who presented to the ED on 07/25/16 with weakness, diarrhea, and vomiting. 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 Discussed plan with Dr Tracey who was able to see the patient in his office tomorrow am, but patient still feels quite weak and is concerned about his ability to leave the hospital and make it to the appointment tomorrow am (2) Elevated LFTs Comment: Likely related to malignancy Neg hepatitis panel EBV and CMV serology negative US neg for biliary pathology (3) Abdominal pain Comment: Likely related to malignancy Controlled with morphine at the time, can be transitioned to his oral Dilaudid at time of discharge Viral serologies negative (4) Thrombocytopenia Comment: Likely due to malignancy Viral serologies negative ANC has improved, but thrombocytopenia is persistent (5) Delirium Comment: Appears improved Still intermittently confused Likely due to opiate medications and acute illness (6) Hyponatremia Comment: Resolved (7) Ureterolithiasis Comment: Non-obstructive, unlikely to be contributing to acute picture (8) BPH (benign prostatic hyperplasia) Comment: Continue Flomax. (9) CLL (chronic lymphocytic leukemia) Comment: History of CLL (10) Depression Comment: Stable. Continue Wellbutrin. (11) HLD (hyperlipidemia) (12) HTN (hypertension) Comment: Controlled. Continue lisinopril. (13) Type 2 diabetes mellitus Comment: HgbA1c 9.1 FBG still >200 Increased Lantus to 20U (14) CHRISTIANO (obstructive sleep apnea) (15) Anxiety Comment: Status and Disposition: Cont inpatient hospital stay. Pathology confirms presence of malignancy. Patient did not feel that he could physically manage discharge this afternoon and making it to Dr Tracey's office tomorrow am. will stay in the hospital this evening to meet with Dr Tracey in the am to help develop appropriate discharge and treatment plan. patient's daughter is arranging for home health aides.
[2016-08-03] MEDS: Morphine INJ* 2 MG/ML 1 ML CARPUJECT IV PRN ×4 (05:52→21:06)
[2016-08-03] MEDS: Metoprolol Tartrate TAB* 25 MG PO SCH (08:44)
[2016-08-03] MEDS: buPROPion SR TAB.SR* 100 MG PO SCH (08:44)
[2016-08-03] MEDS: Lisinopril TAB* 10 MG PO SCH (08:44)
[2016-08-03] MEDS: Insulin LISPRO* 1 UNITS UNIT SUBCUT SCH ×2 (08:45→12:57)
[2016-08-03] MEDS: Tamsulosin CAP* 0.4 MG PO SCH (08:45)
[2016-08-03] MEDS: Ondansetron INJ* 2 MG/ML VIAL IV PRN (08:45)
[2016-08-03] MEDS: Docusate CAP* 100 MG PO SCH ×2 (08:45→21:06)
--- NOTE | 2016-08-03 10:42 | PN ---
Progress Note - Progress Note SOAP: Subjective: []Feeling poorly, pain has bee increasing. Not eating well. Morphine works. Feels poorly. Acetaminophen (Tylenol Tab*) 650 mg PO Q6H PRN PRN Reason: FEVER/PAIN Last Admin: 07/31/16 03:36 Dose: 650 mg Bupropion HCl (Wellbutrin Sr Tab*) 100 mg PO QAM [facility] Last Admin: 08/03/16 08:44 Dose: 100 mg Dextrose (D50w Syringe 50 Ml*) 12.5 gm IV PUSH .FOR FS < 60 - SS PRN PRN Reason: FS < 60 Docusate Sodium (Colace Cap*) 200 mg PO BID [facility] Last Admin: 08/03/16 08:45 Dose: 200 mg Insulin Glargine (Lantus(*)) 20 units SUBCUT Q24H [facility] Last Admin: 08/02/16 17:32 Dose: 20 units Insulin Human Lispro (Humalog*) 0 units SUBCUT AC [facility] PRN Reason: Protocol Last Admin: 08/03/16 08:45 Dose: 6 units Lisinopril (Prinivil Tab*) 20 mg PO DAILY [facility] Last Admin: 08/03/16 08:44 Dose: 20 mg Metoprolol Tartrate (Lopressor Tab*) 12.5 mg PO Q12HR [facility] Last Admin: 08/03/16 08:44 Dose: 12.5 mg Morphine Sulfate (Morphine Inj (Syringe)*) 2 mg IV Q2H PRN PRN Reason: PAIN - MILD Last Admin: 08/03/16 08:45 Dose: 2 mg Nitroglycerin (Nitroglycerin Tab 0.4 Mg*) 0.4 mg SL Q5M PRN PRN Reason: ANGINA Last Admin: 07/30/16 20:18 Dose: 0.4 mg Ondansetron HCl (Zofran Inj*) 4 mg IV Q6H PRN PRN Reason: NAUSEA Last Admin: 08/03/16 08:45 Dose: 4 mg Sodium Biphosphate/Sodium Phosphate (Fleet Enema*) 1 bottle [place] DAILY PRN PRN Reason: CONSTIPATION Last Admin: 08/02/16 22:09 Dose: 1 bottle Tamsulosin HCl (Flomax Cap*) 0.4 mg PO DAILY [facility] Last Admin: 08/03/16 08:45 Dose: 0.4 mg Tramadol HCl (Ultram*) 50 mg PO Q6H PRN PRN Reason: PAIN Last Admin: 08/02/16 08:43 Dose: 50 mg Objective: [] Vital Signs Temp Pulse Resp BP Pulse Ox 98.2 F 102 16 120/74 92 08/03/16 07:23 08/03/16 07:23 08/03/16 09:45 08/03/16 07:23 08/03/16 09:31 Sleepy, no acute distress HEENT: Mucosa moist, no LAD. No jaundice CTA RRR S1S2 Liver edge is palpable, non tender, no spleen tip on my exam. Exam in past wit LLQ tenderness but no liver edge. Ext tr edema, warm skin bruising Labs reviewed. 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 Presents with liver mass , increased LFTs, cytopenias. Bone marrow biopsy done to evacuate if thrombocytopenia is secondary to CLL, ITP or marrow infiltration of his tumor. Looking at increase in size of his liver over past 2 months, progression of his blood counts this week, he has an aggressive course of his tumor. Barrera behaves as small cell cancer. If he had chemotherapy he would likely respond quickly and feel better for a while but then the cancer would reoccur within a year and he would become ill again. Also, with chemotherapy he has the risk of complications, hospitalization, infection, bleeding. Risk of prolonged poor quality life. If he is not treated will progress and likely within a week or two. Given those options he would like pain control and to let it go. This is reasonable. Plan: []1. Hospice consult and a good candidate for hospice residence. He cannot go home 2. Continue PRN morphine and Fentanyl patch 25 mcg 3. Will stop unnecessary medications and the Tramadol 4. No additional labs 5. DNR and DNI 6. Bone marrow is pending but given above will not act on results. 7. Change primary service to oncology time with patient and family 50 min today
[2016-08-03] MEDS: fentaNYL PATCH 25 MCG/HR TRANSDERM SCH (11:45)
--- NOTE | 2016-08-03 12:54 | CONSULT ---
Palliative / Hospice Consult Ordering Provider: Shin Tracey Referal Reason: hospice referral - Subjective Code Status: DNR Advance Directives Location: No Advance Directives MOLST Part A Completed: Yes - DNR MOLST Part E Completed:: Yes - DNI, Comfort measures HCP Completed: Yes - History or Present Illness History or Present Illness: Pt is an 81 yo man with PMH CLL, rema cell carcinoma who was admitted 1 with weakness, nausea and diarrhea. While here he was found to have a new liver mass which was biopsied today but is believed to be rema cell and patient's prognosis with or without treatment is rather poor. He has elected to not pursue chemotherapy and hospice referral was made. Dr. Tracey believes prognosis is 1-2 weeks. Pt has been having issues with both pain and nausea but they are controlled with morphine, fentanyl and zofran. For more detailed history and hospital course, please see prior notes. Referral was made to evaluate for hospice and possibly the [facility] residence. I evaluated pt at the bedside and spoke with him, his and daughter. Pt was oriented but sleepy, did not participate much in the conversation. He did report that he continues to have pain and nausea, but they are controlled with medication. He has not wanted to eat much today. His , who is sitting in a WC, says she has Parkinson's Disease and is unable to care for him at home. They acknowledge pt's limited prognosis, that it may be as little as days. They are concerned that he continue to get good symptom control, whether he is inpatient or [facility]. Pt's says she is familiar with the [facility] residence, she has had other family members there. We discussed the fee at the residence and she says they will be able to pay it. I explained that there may or may not be a bed offer, depending on whether the bed has already been asked for by someone on home hospice services. Lab Values: Abnormal Lab Results 08/02/16 08/03/16 08/03/16 16:54 07:53 10:15 POC Glucose (mg/dL) 205 H 205 H Flow Intrp 2-8 Markers TNP Flow Intrp 16+ Markers TNP 08/03/16 11:53 POC Glucose (mg/dL) 171 H Flow Intrp 2-8 Markers Flow Intrp 16+ Markers Laboratory Last Values WBC 3.5 10^3/ul (3.5-10.8) 08/02/16 10:51 RBC 4.01 10^6/ul (4.0-5.4) 08/02/16 10:51 Hgb 12.2 g/dl (14.0-18.0) L 08/02/16 10:51 Hct 37 % (42-52) L 08/02/16 10:51 MCV 93 fL (80-94) 08/02/16 10:51 MCH 31 pg (27-31) 08/02/16 10:51 MCHC 33 g/dl (31-36) 08/02/16 10:51 RDW 16 % (10.5-15) H 08/02/16 10:51 Plt Count 26 10^3/ul (150-450) L 08/02/16 10:51 MPV 9 um3 (7.4-10.4) 08/02/16 10:51 Neut % (Auto) 66.5 % (38-83) 08/02/16 10:51 Lymph % (Auto) 15.9 % (25-47) L 08/02/16 10:51 [place] % (Auto) 14.9 % (1-9) H 08/02/16 10:51 Eos % (Auto) 1.3 % (0-6) 08/02/16 10:51 Baso % (Auto) 1.4 % (0-2) 08/02/16 10:51 Absolute Neuts (auto) 2.3 10^3/ul (1.5-7.7) 08/02/16 10:51 Absolute Lymphs (auto) 0.6 10^3/ul (1.0-4.8) L 08/02/16 10:51 Absolute Monos (auto) 0.5 10^3/ul (0-0.8) 08/02/16 10:51 Absolute Eos (auto) 0 10^3/ul (0-0.6) 08/02/16 10:51 Absolute Basos (auto) 0.1 10^3/ul (0-0.2) 08/02/16 10:51 Absolute Nucleated RBC 0.02 10^3/ul 08/02/16 10:51 Nucleated RBC % 0.6 08/02/16 10:51 Normal RBC Morphology Not Reportable 08/02/16 10:51 Polychromasia 2+ 08/02/16 10:51 Hem Pathologist Commnt 07/25/16 14:50 INR (Anticoag Therapy) 1.15 (0.89-1.11) H 07/30/16 20:50 APTT 29.4 seconds (26.0-36.3) 07/30/16 20:50 D-Dimer, Quantitative > 1050 ng/mL (Less Than 230) H 07/30/16 20:50 Sodium 135 mmol/L (133-145) 08/02/16 10:51 Potassium 3.9 mmol/L (3.5-5.0) 08/02/16 10:51 Chloride 102 mmol/L (101-111) 08/02/16 10:51 Carbon Dioxide 28 mmol/L (22-32) 08/02/16 10:51 Anion Gap 5 mmol/L (2-11) 08/02/16 10:51 BUN 18 mg/dL (6-24) 08/02/16 10:51 Creatinine 1.05 mg/dL (0.67-1.17) 08/02/16 10:51 Est GFR ( Amer) 87.0 (>60) 08/02/16 10:51 Est GFR (Non-Af Amer) 67.6 (>60) 08/02/16 10:51 BUN/Creatinine Ratio 17.1 (8-20) 08/02/16 10:51 Glucose 210 mg/dL (70-100) H 08/02/16 10:51 POC Glucose (mg/dL) 171 mg/dL (74-106) H 08/03/16 11:53 Hemoglobin A1c 9.1 % (Less than 6.0) H 07/25/16 14:50 Lactic Acid 1.9 mmol/L (0.5-2.0) 07/31/16 01:30 Calcium 10.4 mg/dL (8.6-10.3) H 08/02/16 10:51 Magnesium 2.7 mg/dL (1.9-2.7) 07/31/16 05:58 Transferrin 170 mg/dL (200 - 360) L 07/27/16 06:07 Total Bilirubin 3.80 mg/dL (0.2-1.0) H 08/02/16 10:51 Direct Bilirubin 1.40 mg/dL (0.03-0.18) H 07/30/16 22:18 Indirect Bilirubin 1.6 mg/dL (0.3-1.0) H 07/30/16 22:18 AST 177 U/L (13-39) H 08/02/16 10:51 ALT 79 U/L (7-52) H 08/02/16 10:51 Alkaline Phosphatase 158 U/L (34-104) H 08/02/16 10:51 Ammonia 100 mol/L (16-53) H 07/30/16 20:50 CK-MB (CK-2) 2.3 ng/mL (0.6-6.3) 07/30/16 22:18 Troponin I 0.05 ng/mL (<0.04) H* 07/31/16 05:58 C-Reactive Protein 29.38 mg/L (< 5.00) H 07/30/16 06:11 B-Natriuretic Peptide 104 pg/mL (-100) H 07/30/16 20:50 Total Protein 5.3 g/dL (6.4-8.9) L 08/02/16 10:51 Total Protein (PEP) 6.5 g/dL (6.3 - 7.9) 07/30/16 06:11 Albumin 2.7 g/dL (3.2-5.2) L 08/02/16 10:51 Albumin (PEP) 3.0 g/dL (3.4-4.7) L 07/30/16 06:11 Globulin 2.6 g/dL (2-4) 08/02/16 10:51 Albumin/Globulin Ratio 1.0 (1-3) 08/02/16 10:51 Albumin/Globulin (PEP) 0.88 07/30/16 06:11 Prealbumin 6 mg/dL (18-38) L 07/30/16 20:50 Cwhuz-8-Lucwldzsm 0.4 g/dL (0.1-0.3) H 07/30/16 06:11 Tzuyv-4-Cxtvcvhla 0.8 g/dL (0.6-1.0) 07/30/16 06:11 Jebw-1-Ehaffsis 0.8 g/dL (0.7-1.2) 07/30/16 06:11 Gamma Globulins 1.4 g/dL (0.6-1.6) 07/30/16 06:11 M-Rayo Not Reportable 07/30/16 06:11 M-Rayo 2 Not Reportable 07/30/16 06:11 PEP Impression See comment 07/30/16 06:11 Lipase 26 U/L (11.0-82.0) 07/30/16 22:18 Tumor Marker AFP 1.3 ng/mL (<6.0) 07/27/16 06:07 Urine Color Denisha 07/31/16 03:05 Urine Appearance Cloudy 07/31/16 03:05 Urine pH 5.0 (5-9) 07/31/16 03:05 Ur Specific [place] 1.024 (1.010-1.030) 07/31/16 03:05 Urine Protein Negative (Negative) 07/31/16 03:05 Urine Ketones Negative (Negative) 07/31/16 03:05 Urine Blood Negative (Negative) 07/31/16 03:05 Urine Nitrate Negative (Negative) 07/31/16 03:05 Urine Bilirubin Negative (Negative) 07/31/16 03:05 Urine Urobilinogen Negative (Negative) 07/31/16 03:05 Ur Leukocyte Esterase Negative (Negative) 07/31/16 03:05 Urine Glucose Negative (Negative) 07/31/16 03:05 Lead 1.4 mcg/dL (0.0-4.9) 07/29/16 05:06 IgG 817 mg/dL (767 - 1590) 07/30/16 06:11 IgA 179 mg/dL (61 - 356) 07/30/16 06:11 IgM 228 mg/dL (37 - 286) 07/30/16 06:11 Serum Immunofixation See comment 07/30/16 06:11 Anti-Nuclear Antibody 0.3 U 07/27/16 06:07 Lyme Disease Serology Negative (Negative) 07/28/16 05:18 CMV IgG Ab Positive (Negative) 07/28/16 05:18 CMV IgM Ab Negative (Negative) 07/28/16 05:18 EBV Capsid Ag IgG Ab Positive (Negative) 07/28/16 05:18 EBV Capsid Ag IgM Ab Negative (Negative) 07/28/16 05:18 EBV Nuclear Antigen Positive (Negative) 07/28/16 05:18 EBV Interpretation See comment 07/28/16 05:18 Hepatitis A IgM Ab Nonreactive (Nonreactive) 07/26/16 06:16 Hep Bs Antigen Nonreactive (Nonreactive) 07/26/16 06:16 Hep B Core IgM Ab Nonreactive (Nonreactive) 07/26/16 06:16 Hepatitis C Antibody Nonreactive (Nonreactive) 07/26/16 06:16 Influenza A (Rapid) Negative (Negative) 07/25/16 23:10 Influenza B (Rapid) Negative (Negative) 07/25/16 23:10 Norovirus Antigen Not detected 07/26/16 01:15 Parasite Exam See comment 07/26/16 01:15 Flow Intrp 2-8 Markers TNP 08/03/16 10:15 Flow Intrp 16+ Markers TNP 08/03/16 10:15 Blood Type O Negative 07/31/16 05:58 Antibody Screen Negative 07/31/16 05:58 - Objective Active Medications: Acetaminophen (Tylenol Tab*) 650 mg PO Q6H PRN PRN Reason: FEVER/PAIN Last Admin: 07/31/16 03:36 Dose: 650 mg Dextrose (D50w Syringe 50 Ml*) 12.5 gm IV PUSH .FOR FS < 60 - SS PRN PRN Reason: FS < 60 Docusate Sodium (Colace Cap*) 200 mg PO BID [facility] Last Admin: 08/03/16 08:45 Dose: 200 mg Fentanyl (Duragesic Patch 25 Mcg/Hr*) 25 mcg TRANSDERM Q72H [facility] Last Admin: 08/03/16 11:45 Dose: 25 mcg Insulin Glargine (Lantus(*)) 20 units SUBCUT Q24H [facility] Last Admin: 08/02/16 17:32 Dose: 20 units Insulin Human Lispro (Humalog*) 0 units SUBCUT AC [facility] PRN Reason: Protocol Last Admin: 08/03/16 08:45 Dose: 6 units Metoprolol Tartrate (Lopressor Tab*) 12.5 mg PO Q12HR [facility] Last Admin: 08/03/16 08:44 Dose: 12.5 mg Morphine Sulfate (Morphine Inj (Syringe)*) 2 mg IV Q2H PRN PRN Reason: PAIN - MILD Last Admin: 08/03/16 08:45 Dose: 2 mg Nitroglycerin (Nitroglycerin Tab 0.4 Mg*) 0.4 mg SL Q5M PRN PRN Reason: ANGINA Last Admin: 07/30/16 20:18 Dose: 0.4 mg Ondansetron HCl (Zofran Inj*) 4 mg IV Q6H PRN PRN Reason: NAUSEA Last Admin: 08/03/16 08:45 Dose: 4 mg Pharmacy Profile Note (Fentanyl Patch Check Q Shift) 1 note N/A 0700,1900 [facility] Sodium Biphosphate/Sodium Phosphate (Fleet Enema*) 1 bottle [place] DAILY PRN PRN Reason: CONSTIPATION Last Admin: 08/02/16 22:09 Dose: 1 bottle Tamsulosin HCl (Flomax Cap*) 0.4 mg PO DAILY [facility] Last Admin: 08/03/16 08:45 Dose: 0.4 mg Vital Signs: Vital Signs: Temp Pulse Resp BP Pulse Ox 98.2 F 102 16 120/74 89 08/03/16 07:23 08/03/16 07:23 08/03/16 11:45 08/03/16 07:23 08/03/16 12:17 Patient Weight: Weight 199 lb 6.4 oz Intake and Output: Intake & Output 08/01/16 08/02/16 08/03/16 08/04/16 06:59 06:59 06:59 06:59 Intake Total 665 1450 825 0 Output Total 450 100 Balance 215 1350 825 0 Weight 198 lb 6.4 oz 199 lb 6.4 oz Intake: IV Fluids 290 NS (0.9%) 100 Platelet 190 Oral 375 1450 825 0 Output: Urine 450 100 Other: Estimated Void Medium Medium Medium Medium # Bowel Movements 0 0 0 Estimated Stool Amount Small Small # Voids 2 2 2 1 ADLs: Meal Record Start: 07/25/16 21: 22 Freq: DAILY@0900,1400,1800 Status: Active Created 07/25/16 21:22 System (Rec: 07/25/16 21:22 System MED-L06) Document 07/26/16 09:00 [id number] (Rec: 07/26/16 09:44 [id number] MED-M04) Document 07/26/16 14:00 [id number] (Rec: 07/26/16 14:44 [id number] MED-C11) Document 07/26/16 18:00 [id number] (Rec: 07/26/16 20:41 [id number] MED-C11) Document 07/27/16 09:00 FNH9457 (Rec: 07/27/16 10:44 [id number] TELE-C01) Document 07/27/16 14:00 UTZ2099 (Rec: 07/27/16 15:05 HCM7874 TELE-C01) Document 07/27/16 18:36 BSF3059 (Rec: 07/27/16 18:36 AIY0142 TELE-C08) Document 07/28/16 09:00 BBW6897 (Rec: 07/28/16 09:13 BNB2757 TELE-C07) Document 07/28/16 13:32 SRZ3220 (Rec: 07/28/16 13:33 CLP0413 TELE-C07) Document 07/28/16 17:51 RFU4941 (Rec: 07/28/16 17:51 BZM4900 TELE-C09) Document 07/29/16 09:00 AFT4554 (Rec: 07/29/16 10:31 KJF2255 TELE-C01) Document 07/29/16 13:13 QRJ4307 (Rec: 07/29/16 13:14 IPP6187 TELE-C01) Document 07/29/16 18:00 RMC5764 (Rec: 07/29/16 20:23 MNF2004 TELE-C01) Document 07/30/16 09:00 STM3755 (Rec: 07/30/16 10:04 QVA2019 TELE-C01) Document 07/30/16 14:00 IGQ7888 (Rec: 07/30/16 15:21 NLQ5479 TELE-C01) Document 07/30/16 18:00 AKR9519 (Rec: 07/30/16 22:41 SEZ4500 TELE-C01) Document 07/31/16 14:00 CZF0891 (Rec: 07/31/16 14:12 OUB8843 TELE-C07) Document 07/31/16 18:00 FHI6881 (Rec: 07/31/16 18:35 OAZ0397 TELE-C01) Document 08/01/16 08:44 TYZ2742 (Rec: 08/01/16 08:44 DBY3508 TELE-C09) Document 08/01/16 12:51 OIR7162 (Rec: 08/01/16 12:52 NSS2073 TELE-C11) Document 08/01/16 21:49 OWY9985 (Rec: 08/01/16 21:50 CBQ3980 TELE-C35) Document 08/02/16 08:40 ZNU3561 (Rec: 08/02/16 08:40 LYF2885 TELE-C09) Document 08/02/16 13:35 GFM4355 (Rec: 08/02/16 13:35 OVG0855 TELE-C09) Document 08/02/16 19:41 VKE7494 (Rec: 08/02/16 19:42 MET2834 TELE-C35) Document 08/03/16 08:48 XGZ2412 (Rec: 08/03/16 08:49 CXM4869 TELE-C09) Intake and Output Start: 07/25/16 21: 22 Freq: DAILY@0600,1400,2200 Status: Active Created 07/25/16 21:22 System (Rec: 07/25/16 21:22 System MED-L06) Document 07/26/16 05:17 [id number] (Rec: 07/26/16 05:18 LVW6397 MED-C42) Document 07/26/16 09:45 RCA4548 (Rec: 07/26/16 09:45 XXE4411 MED-M04) Document 07/26/16 14:00 TVI6876 (Rec: 07/26/16 14:44 VQZ7657 MED-C11) Document 07/26/16 22:00 XVO5059 (Rec: 07/26/16 22:29 ZPS7079 MED-C11) Document 07/27/16 06:00 FRO5989 (Rec: 07/27/16 06:14 IBB1525 TELE-C35) Document 07/27/16 14:00 SSE0318 (Rec: 07/27/16 15:05 RGS7917 TELE-C01) Document 07/27/16 21:44 CJH6199 (Rec: 07/27/16 21:45 FQM2626 TELE-M10) Document 07/28/16 00:03 TWW7377 (Rec: 07/28/16 00:05 IJI8621 TELE-C01) Document 07/28/16 00:05 VFF4580 (Rec: 07/28/16 00:05 PBC1768 TELE-C01) Document 07/28/16 05:43 OTT5211 (Rec: 07/28/16 05:44 QXF9081 TELE-C01) Document 07/28/16 05:45 IXU3210 (Rec: 07/28/16 05:45 WKK1070 TELE-C01) Document 07/28/16 08:56 PAF7014 (Rec: 07/28/16 08:56 TTD7455 TELE-M05) Document 07/28/16 13:32 GBL1391 (Rec: 07/28/16 13:33 VBU7528 TELE-C07) Document 07/29/16 05:48 HCH1755 (Rec: 07/29/16 05:49 AUQ3129 TELE-C34) Document 07/29/16 06:23 XRM7731 (Rec: 07/29/16 06:23 XHD9534 TELE-C34) Document 07/29/16 11:57 XNM6772 (Rec: 07/29/16 11:57 GCJ5824 TELE-C01) Document 07/29/16 14:00 SPH5806 (Rec: 07/29/16 15:01 WQP9537 TELE-C15) Document 07/29/16 21:54 AQU4479 (Rec: 07/29/16 21:55 IXI7724 TELE-C01) Document 07/30/16 06:00 FYD7702 (Rec: 07/30/16 06:27 XNE5846 TELE-C35) Document 07/30/16 14:00 CBT9254 (Rec: 07/30/16 15:23 LBG7319 TELE-C01) Document 07/30/16 22:00 PWF4999 (Rec: 07/30/16 22:42 XME2712 TELE-C01) Document 07/31/16 06:00 ZJH0535 (Rec: 07/31/16 06:26 GED4918 TELE-C34) Document 07/31/16 08:49 LQZ3371 (Rec: 07/31/16 08:50 GYF6717 TELE-L01) Document 07/31/16 14:00 XFN9883 (Rec: 07/31/16 14:12 WSL6604 TELE-C07) Document 07/31/16 22:00 SIC6637 (Rec: 07/31/16 22:33 QQL9077 TELE-C01) Document 08/01/16 04:45 BMS3783 (Rec: 08/01/16 04:46 GUX5212 TELE-C34) Document 08/01/16 12:51 DJT5551 (Rec: 08/01/16 12:52 MXE3896 TELE-C11) Document 08/01/16 13:32 CWQ9912 (Rec: 08/01/16 13:32 SHJ7927 TELE-L01) Document 08/01/16 21:57 ICE9287 (Rec: 08/01/16 21:58 ROX4059 TELE-C35) Document 08/02/16 05:50 MUZ4776 (Rec: 08/02/16 05:50 WAR2642 TELE-C34) Document 08/02/16 07:46 BWF3190 (Rec: 08/02/16 07:46 YBQ5037 TELE-C09) Document 08/02/16 13:35 PFE6187 (Rec: 08/02/16 13:35 VLG5862 TELE-C09) Document 08/02/16 21:53 PNK8047 (Rec: 08/02/16 21:53 OAM9976 TELE-C35) Document 08/03/16 06:00 WKN1256 (Rec: 08/03/16 06:24 USB2837 TELE-C34) General Impression: WNWD elderly man lying in bed, oriented but sleepy. 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 Pt has declined further treatment and confirms to me that he has made this decision, even if it means he will soon. He and his family are sad but accepting and would like hospice services. Pt's pain and nausea are controlled on current regimen. I anticipate that given the aggressive nature of his cancer, these sxs may worsen in the coming days, requiring frequent titration of medication. Pt may therefore be a good candidate for general inpatient hospice by early next week. - Plan Consult Plan (MU): Hospice Plan: It is too late in the day to consider [facility]. We will reevaluate pt on Saturday or Saturday for possible admission to general inpatient hospice. Family is in agreement with this plan. Will transfer pt to for [facility] [employer], d/c telemetry and unnecessary meds. Thank you for the referral. - Time On Unit Date of Evaluation: 08/03/16 Hospice Consult Time in: 12:00 Hospice Consult Time Out: 13:00 Hospice Consult Time Total: 60 > 50% of Time Spend In Counseling or Coordinating Care: Yes
[2016-08-03] MEDS: fentaNYL Patch Check Q Shift 1 NOTE SCH (19:09)
[2016-08-04] MEDS: Morphine INJ* 2 MG/ML 1 ML CARPUJECT IV PRN ×7 (04:53→19:59)
[2016-08-04] MEDS: fentaNYL Patch Check Q Shift 1 NOTE SCH ×2 (07:13→18:57)
[2016-08-04] MEDS: Docusate CAP* 100 MG PO SCH ×2 (08:10→20:16)
[2016-08-04] MEDS: Tamsulosin CAP* 0.4 MG PO SCH (08:10)
--- NOTE | 2016-08-04 08:37 | PN ---
Progress Note - Progress Note SOAP: Subjective: "pain" everywhere. no specific localizing complaints. awaiting some type of hospice placement or inpatient hospice early next week. Objective: Vital Signs Temp Pulse Resp BP Pulse Ox 97.3 F 97 18 112/63 91 08/03/16 16:00 08/03/16 16:00 08/04/16 08:04 08/03/16 16:00 08/03/16 22:34 perr eomi op moist cta bl s1 s2 nl soft, mild ruq ttp no le edema confused Acetaminophen (Tylenol Tab*) 650 mg PO Q6H PRN PRN Reason: FEVER/PAIN Last Admin: 07/31/16 03:36 Dose: 650 mg Docusate Sodium (Colace Cap*) 200 mg PO BID [facility] Last Admin: 08/04/16 08:10 Dose: 200 mg Fentanyl (Duragesic Patch 25 Mcg/Hr*) 25 mcg TRANSDERM Q72H [facility] Last Admin: 08/03/16 11:45 Dose: 25 mcg Morphine Sulfate (Morphine Inj (Syringe)*) 2 mg IV Q2H PRN PRN Reason: PAIN - MILD Last Admin: 08/04/16 08:04 Dose: 2 mg Nitroglycerin (Nitroglycerin Tab 0.4 Mg*) 0.4 mg SL Q5M PRN PRN Reason: ANGINA Last Admin: 07/30/16 20:18 Dose: 0.4 mg Ondansetron HCl (Zofran Inj*) 4 mg IV Q6H PRN PRN Reason: NAUSEA Last Admin: 08/03/16 08:45 Dose: 4 mg Pharmacy Profile Note (Fentanyl Patch Check Q Shift) 1 note N/A 0700,1900 [facility] Last Admin: 08/04/16 07:13 Dose: 1 note Sodium Biphosphate/Sodium Phosphate (Fleet Enema*) 1 bottle [place] DAILY PRN PRN Reason: CONSTIPATION Last Admin: 08/02/16 22:09 Dose: 1 bottle Tamsulosin HCl (Flomax Cap*) 0.4 mg PO DAILY [facility] Last Admin: 08/04/16 08:10 Dose: 0.4 mg Assessment: 81 yo M w CLL and metastatic maria l cell CA on comfort measures only, awaiting hospice disposition. Plan: -comfort measures -fentanyl patch just added yesterday, can increase Saturday if needed -cont prn morphine DNR
[2016-08-04] MEDS ORDERED: LORazepam INJ* 2 MG/ML 1 ML VIAL IV PUSH PRN (18:25)
[2016-08-05] MEDS: fentaNYL Patch Check Q Shift 1 NOTE SCH ×2 (06:59→20:49)
[2016-08-05] MEDS: Morphine INJ* 4 MG/ML 1 ML CARPUJECT IV PRN ×3 (09:12→23:24)
[2016-08-05] MEDS: Docusate CAP* 100 MG PO SCH ×2 (09:23→20:58)
[2016-08-05] MEDS: Tamsulosin CAP* 0.4 MG PO SCH (09:23)
[2016-08-05] MEDS: Morphine INJ* 2 MG/ML 1 ML CARPUJECT IV PRN ×4 (12:05→20:28)
[2016-08-06] MEDS: Atropine 1% (ORAL/SL)* 15 ML BTL SL PRN ×3 (03:18→08:05)
[2016-08-06] MEDS: Morphine INJ* 2 MG/ML 1 ML CARPUJECT IV PRN ×3 (04:20→11:29)
[2016-08-06] MEDS: Morphine INJ* 4 MG/ML 1 ML CARPUJECT IV PRN ×2 (06:17→08:04)
[2016-08-06] MEDS: fentaNYL Patch Check Q Shift 1 NOTE SCH (07:13)
[2016-08-06] MEDS: Docusate CAP* 100 MG PO SCH (07:16)
[2016-08-06] MEDS: Tamsulosin CAP* 0.4 MG PO SCH (07:17)
[2016-08-06] MEDS ORDERED: Morphine INJ* 4 MG/ML 1 ML CARPUJECT IV PRN (08:52)
[2016-08-06] MEDS ORDERED: LORazepam INJ* 2 MG/ML 1 ML VIAL IV PUSH PRN (08:53)
--- NOTE | 2016-08-06 08:55 | PN ---
Progress Note - Progress Note SOAP: Subjective: in the process of actively dying. unresponsive Objective: Vital Signs Temp Pulse Resp BP Pulse Ox 97.9 F 110 24 115/47 89 08/05/16 07:23 08/05/16 07:23 08/06/16 08:04 08/05/16 07:23 08/05/16 07:23 unresponsive tachypneic rhonchorous tachycardic Assessment: 81 yo M w CLL and metastatic rema cell CA on comfort measures only. Plan: -increase morphine and ativan -stop all other meds -anticipate expiration today or tomorrow, discussed this with family at bedside
[2016-08-06 09:04] VITALS: BP 93/40
[2016-08-06] MEDS: fentaNYL PATCH 25 MCG/HR TRANSDERM SCH (10:30)
[2016-08-07 15:55] LABS: HCH Reason for Referral CLL; HCH Source Left PIC
--- NOTE | 2017-01-01 14:36 | DS ---
DISCHARGE SUMMARY: DATE OF ADMISSION: 07/25/16 DATE OF EXPIRATION: 08/06/16 DISCHARGE DIAGNOSES: 1. The patient . 2. Metastatic Nelson cell carcinoma, on palliative measures. HOSPITAL SUMMARY: Mr. Tavares is an 81-year-old gentleman with past medical history of CLL and Muse cell carcinoma, admitted with weakness, nausea, and diarrhea. While in the hospital, he was found to have a new liver mass, which biopsy confirmed metastatic Muse cell carcinoma. He had a very poor prognosis and poor functional status and eventually deteriorated in the hospital. On extensive conversation with the patient's and daughter, they agreed for hospice measures. Given his limited functional status, he was not able to be cared for with home hospice and he did in the hospital on the 08/06/16. [id number]/[facility] #: [id number] MTDD
== END 2016-08-06 12:15 | disposition expired | DRG 844 ==
LOC: ED 10:42 → MED 20:45 → OBSVTOIN 07-26 18:54 → MEDTELE 07-26 23:00 → MED 08-03 15:54
PROVIDERS: ADMIT Pediatrics; ATTEND Internal Medicine Hematology & Oncology
PROC: 5A09357 Assistance with Respiratory Ventilation, Less than 24 Consecutive Hours, Continuous Positive Airway Pressure (ICD-10-PCS; 2016-07-26)
PROC: 0FB13ZX Excision of Right Lobe Liver, Percutaneous Approach, Diagnostic (ICD-10-PCS; principal; 2016-07-31)
PROC: 30233R1 Transfusion of Nonautologous Platelets into Peripheral Vein, Percutaneous Approach (ICD-10-PCS; 2016-07-31)
PROC: 07DR3ZX Extraction of Iliac Bone Marrow, Percutaneous Approach, Diagnostic (ICD-10-PCS; 2016-08-03)
DX: C7B.1 Secondary Merkel cell carcinoma (principal); C91.10 Chronic lymphocytic leukemia of B-cell type not having achieved remission; D69.6 Thrombocytopenia, unspecified; N20.1 Calculus of ureter; E87.1 Hypo-osmolality and hyponatremia; E11.9 Type 2 diabetes mellitus without complications; K76.0 Fatty (change of) liver, not elsewhere classified; K52.9 Noninfective gastroenteritis and colitis, unspecified; I10 Essential (primary) hypertension; E78.5 Hyperlipidemia, unspecified; F41.0 Panic disorder [episodic paroxysmal anxiety]; K21.9 Gastro-esophageal reflux disease without esophagitis; Z86.010 Personal history of colon polyps; Z91.018 Allergy to other foods; G47.33 Obstructive sleep apnea (adult) (pediatric); M13.811 Other specified arthritis, right shoulder; F32.9 Major depressive disorder, single episode, unspecified; Z85.821 Personal history of Merkel cell carcinoma; Z87.11 Personal history of peptic ulcer disease; Z87.442 Personal history of urinary calculi; E86.0 Dehydration; Z83.3 Family history of diabetes mellitus; Z82.41 Family history of sudden cardiac death; Z87.891 Personal history of nicotine dependence; K57.30 Diverticulosis of large intestine without perforation or abscess without bleeding; M54.9 Dorsalgia, unspecified; N40.0 Benign prostatic hyperplasia without lower urinary tract symptoms; R07.89 Other chest pain; R41.0 Disorientation, unspecified; T40.605A Adverse effect of unspecified narcotics, initial encounter; Z66 Do not resuscitate; Z51.5 Encounter for palliative care; R00.0 Tachycardia, unspecified
CPT/HCPCS: 36415; 47000; 71010; 71275; 74177; 74183; 76705; 76942; 80048; 80053; 80074; 80076; 81003; 81479; 82105; 82140; 82247; 82553; 82784; 83036; 83605; 83630; 83655; 83690; 83735; 83880; 84075; 84132; 84134; 84155; 84165; 84450; 84460; 84466; 84484; 85025; 85049; 85060; 85097; 85379; 85610; 85730; 86038; 86140; 86334; 86618; 86644; 86645; 86664; 86665; 86850; 86900; 86901; 87040; 87045; 87046; 87086; 87177; 87209; 87328; 87329; 87425; 87449; 87493; 87502; 87899; 88172; 88173; 88184; 88185; 88188; 88189; 88305; 88311; 88313; 88323; 88341; 88342; 90732; 93005; 93306; 94660; 94760; 99232; 99233; 99285; A9270-GY; A9581; G0378; J1170; J2060; J2270; J2405; J3010; J3475; P9035; Q9967